=== PATIENT | male | born 1955 | race American Indian/Alaskan Native ===

== ENCOUNTER 2019-12-18 13:01 | Inpatient (IN) | payer MEDICARE ==
--- NOTE | 2019-12-18 14:19 | Emergency Department Report ---
ED Neuro Deficit HPI - General Chief Complaint: Weakness Stated Complaint: SOB/LEGGS SWOLLEN Source: patient Mode of arrival: Wheelchair Limitations: No Limitations - History of Present Illness Initial Comments: This is a 64-year-old man who states he has been homeless for the last 3 months. He states he had a "rough night". He slept on concrete. When he awoke he was unable to extend his left hand. He also complains of shortness of breath which is more acute today. He states he has been coughing yellow sputum to white foam for the last few months. He denies hemoptysis. He states he has not been recently hospitalized. He has an extensive medical history to include p acemaker/cardiomyopathy/CHF. -: days(s), week(s), month(s) Location: left arm Presenting Symptoms: Present: Weak/Paralyzed One Side History of same: No Place: home Severity: severe Quality: weak Improves With: none Worsens With: none On Anticoagulants: No Context: other (Awoke with wrist drop) Associated Symptoms: denies other symptoms Treatments Prior to Arrival: none - Related Data Home Medications: Previous Rx's Medication Instructions Recorded Last Taken Type Aspirin EC [Halfprin EC] 81 mg PO QDAY #30 tablet 06/13/14 Unknown Rx Metoprolol [Lopressor TAB] 12.5 mg PO BID #60 tablet 06/13/14 Unknown Rx Rosuvastatin (Nf) [Crestor] 20 mg PO QHS #30 tablet 06/13/14 Unknown Rx lisinopriL [Zestril TAB] 2.5 mg PO QDAY #30 tablet 06/13/14 Unknown Rx Allergies/Adverse Reactions: Allergies Allergy/AdvReac Type Severity Reaction Status Date / Time No Known Allergies Allergy Verified 12/18/19 13:35 ED Review of Systems ROS: Stated complaint: SOB/LEGGS SWOLLEN Other details as noted in HPI Constitutional: denies: chills, fever Eyes: denies: eye pain, eye discharge, vision change ENT: denies: ear pain, throat pain Respiratory: cough, shortness of breath. denies: wheezing Cardiovascular: denies: chest pain, palpitations Endocrine: no symptoms reported Gastrointestinal: denies: abdominal pain, nausea, diarrhea Genitourinary: denies: urgency, dysuria Musculoskeletal: denies: back pain, joint swelling, arthralgia Skin: denies: rash, lesions Neurological: denies: headache, weakness, paresthesias Psychiatric: denies: anxiety, depression Hematological/Lymphatic: denies: easy bleeding, easy bruising ED Past Medical Hx - Past Medical History Hx Hypertension: Yes Hx CVA: Yes (x4) Hx Heart Attack/AMI: Yes (x6) Hx Congestive Heart Failure: Yes Hx Diabetes: Yes Additional medical history: Coronary artery disease, ischemic/Nonischemic cardiomyopathy. - Surgical History Hx Pacemaker: Yes (AICD) Hx Internal Defibrillator: Yes - Social History Smoking Status: Current Every Day Smoker Substance Use Type: Alcohol, Cocaine, Marijuana - Medications Home Medications: Home Medications Medication Instructions Recorded Confirmed Last Taken Type Aspirin EC [Halfprin EC] 81 mg PO QDAY #30 tablet 06/13/14 Unknown Rx Metoprolol [Lopressor TAB] 12.5 mg PO BID #60 tablet 06/13/14 Unknown Rx Rosuvastatin (Nf) [Crestor] 20 mg PO QHS #30 tablet 06/13/14 Unknown Rx lisinopriL [Zestril TAB] 2.5 mg PO QDAY #30 tablet 06/13/14 Unknown Rx ED Neuro Physical Exam - General Limitations: No Limitations General appearance: alert, in no apparent distress Suspected Stroke: No - Head Head exam: Present: atraumatic, normocephalic - Eye Eye exam: Present: normal appearance. Absent: scleral icterus - ENT ENT exam: Present: mucous membranes moist - Neck Neck exam: Present: normal inspection. Absent: tenderness, meningismus - Respiratory Respiratory exam: Present: rales (Left sided rales posteriorly). Absent: respiratory distress - Cardiovascular Cardiovascular Exam: Present: regular rate, normal rhythm, tachycardia. Absent: systolic murmur, diastolic murmur, rubs, gallop - GI/Abdominal GI/Abdominal exam: Present: soft, normal bowel sounds. Absent: distended, tenderness, guarding, rebound - Rectal Rectal exam: Present: deferred - Extremities Exam Extremities exam: Present: other (Tense leg edema bilaterally no signs of compartment. Erythema bilateral legs.) - Back Exam Back exam: Present: normal inspection - Neurological Exam Neurological exam: Present: alert, oriented X3, CN II-XII intact, motor sensory deficit (Patient has a right wrist drop consistent with peripheral neuropathy) - NIHSS Assessment Interval: Baseline 1a. Level of Consciousness: alert/keenly responsive 1b. LOC Questions: answers both correctly 1c. LOC Commands: performs tasks correctly 2. Best Gaze: normal 3. Visual: no visual loss 4. Facial Palsy: normal symmetrical movement 5b. Motor Arm Right: no drift 5a. Motor Arm Left: no drift 6a. Motor Leg Left: no drift 6b. Motor Leg Right: no drift 7. Limb Ataxia: absent 8. Sensory: normal 9. Best Language: no aphasia 10. Dysarthria: normal 11. Extinction/Inattention: no abnormality Total Score: 0 Stroke Severity: No Stroke Symptoms - Psychiatric Psychiatric exam: Present: normal affect, normal mood - Skin Skin exam: Present: warm, dry, intact, normal color. Absent: rash ED Course Vital Signs 12/18/19 12/18/19 12/18/19 13:45 14:14 14:15 Temperature 98.2 F Pulse Rate 109 H 120 H Respiratory 26 H 24 Rate Blood Pressure Blood Pressure 172/109 [Left] O2 Sat by Pulse 93 49 L Oximetry 12/18/19 12/18/19 12/18/19 14:27 14:31 14:45 Temperature Pulse Rate 111 H 125 H Respiratory 22 19 14 Rate Blood Pressure 176/117 176/117 Blood Pressure [Left] O2 Sat by Pulse 97 94 93 Oximetry 12/18/19 12/18/19 12/18/19 15:01 15:15 15:31 Temperature Pulse Rate 122 H 107 H 122 H Respiratory 20 16 16 Rate Blood Pressure 176/117 176/117 176/117 Blood Pressure [Left] O2 Sat by Pulse 88 95 95 Oximetry 12/18/19 15:45 Temperature Pulse Rate 118 H Respiratory 32 H Rate Blood Pressure 176/117 Blood Pressure [Left] O2 Sat by Pulse 95 Oximetry - Reevaluation(s) Reevaluation #1: Conferred with the tele-neurologist he stated that 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 I certainly agree. The patient is not a candidate for TPA. He did not have a stroke. 12/18/19 16:04 12/18/19 17:07 Patient was found to have a left lingular infiltrate. He had a d-dimer over 900. I do not think that pulmonary embolism is at all likely. However a CT angiogram is now pending. I would say that COVID-19 is definitely suspected. PCR is pending. Patient's proBNP was quite elevated. He was given a dose of IV Lasix. He was given a azithromycin IV piggyback. Hospitalist is aware and admission is pending. - Lab Data Result diagrams: 12/18/19 15:20 12/18/19 15:20 Lab Results 12/18/19 12/18/19 12/18/19 Range/Units 14:55 14:55 15:20 WBC 6.8 (4.5-11.0) K/mm3 RBC 4.57 (3.65-5.03) M/mm3 Hgb 13.0 (11.8-15.2) gm/dl Hct 41.6 (35.5-45.6) % MCV 91 (84-94) fl MCH 29 (28-32) pg MCHC 31 L (32-34) % RDW 19.6 H (13.2-15.2) % Plt Count 176 (140-440) K/mm3 Lymph % (Auto) 17.6 (13.4-35.0) % Mobile % (Auto) 8.7 H (0.0-7.3) % Eos % (Auto) 1.9 (0.0-4.3) % Baso % (Auto) 0.5 (0.0-1.8) % Lymph # 1.2 (1.2-5.4) K/mm3 Mobile # 0.6 (0.0-0.8) K/mm3 Eos # 0.1 (0.0-0.4) K/mm3 Baso # 0.0 (0.0-0.1) K/mm3 Seg Neutrophils % 71.3 H (40.0-70.0) % Seg Neutrophils # 4.9 (1.8-7.7) K/mm3 PT (12.2-14.9) Sec. INR (0.87-1.13) APTT (24.2-36.6) Sec. D-Dimer (0-234) ng/mlDDU Sodium (137-145) mmol/L Potassium (3.6-5.0) mmol/L Chloride (98-107) mmol/L Carbon Dioxide (22-30) mmol/L Anion Gap mmol/L BUN (9-20) mg/dL Creatinine (0.8-1.5) mg/dL Estimated GFR ml/min BUN/Creatinine Ratio % Glucose (75-100) mg/dL Calcium (8.4-10.2) mg/dL Magnesium (1.7-2.3) mg/dL Ferritin (13.0-400.0) ng/mL Total Bilirubin (0.1-1.2) mg/dL Direct Bilirubin (0-0.2) mg/dL Indirect Bilirubin mg/dL AST (5-40) units/L ALT (7-56) units/L Alkaline Phosphatase (35-129) units/L Lactate Dehydrogenase (91-180) units/L Total Creatine Kinase (55-170) units/L CK-MB (CK-2) (0.0-4.0) ng/mL CK-MB (CK-2) Rel Index (0-4) Troponin T (0.00-0.029) ng/mL C-Reactive Protein (0.00-1.30) mg/dL NT-Pro-B Natriuret Pep (0-900) pg/mL Total Protein (6.3-8.2) g/dL Albumin (3.9-5) g/dL Albumin/Globulin Ratio % Urine Color Colorless (Yellow) Urine Turbidity Clear (Clear) Urine pH 6.0 (5.0-7.0) Ur Specific Aiken 1.004 (1.003-1.030) Urine Protein <15 mg/dl (Negative) mg/dL Urine Glucose (UA) Neg (Negative) mg/dL Urine Ketones Neg (Negative) mg/dL Urine Blood Sm (Negative) Urine Nitrite Neg (Negative) Urine Bilirubin Neg (Negative) Urine Urobilinogen < 2.0 (<2.0) mg/dL Ur Leukocyte Esterase Neg (Negative) Urine WBC (Auto) < 1.0 (0.0-6.0) /HPF Urine RBC (Auto) 2.0 (0.0-6.0) /HPF Urine Opiates Screen Presumptive negative Urine Methadone Screen Presumptive negative Ur Barbiturates Screen Presumptive negative Ur Phencyclidine Scrn Presumptive negative Ur Amphetamines Screen Presumptive negative U Benzodiazepines Scrn Presumptive negative Urine Cocaine Screen Presumptive positive U Marijuana (THC) Screen Presumptive negative Drugs of Abuse Note Disclamer Plasma/Serum Alcohol (0-0.07) % 12/18/19 12/18/19 12/18/19 Range/Units 15:20 15:20 15:20 WBC (4.5-11.0) K/mm3 RBC (3.65-5.03) M/mm3 Hgb (11.8-15.2) gm/dl Hct (35.5-45.6) % MCV (84-94) fl MCH (28-32) pg MCHC (32-34) % RDW (13.2-15.2) % Plt Count (140-440) K/mm3 Lymph % (Auto) (13.4-35.0) % Mobile % (Auto) (0.0-7.3) % Eos % (Auto) (0.0-4.3) % Baso % (Auto) (0.0-1.8) % Lymph # (1.2-5.4) K/mm3 Mobile # (0.0-0.8) K/mm3 Eos # (0.0-0.4) K/mm3 Baso # (0.0-0.1) K/mm3 Seg Neutrophils % (40.0-70.0) % Seg Neutrophils # (1.8-7.7) K/mm3 PT 13.5 (12.2-14.9) Sec. INR 1.02 (0.87-1.13) APTT 25.9 (24.2-36.6) Sec. D-Dimer 982.33 H (0-234) ng/mlDDU Sodium 138 (137-145) mmol/L Potassium 4.2 (3.6-5.0) mmol/L Chloride 100.1 (98-107) mmol/L Carbon Dioxide 27 (22-30) mmol/L Anion Gap 15 mmol/L BUN 7 L (9-20) mg/dL Creatinine 0.8 (0.8-1.5) mg/dL Estimated GFR > 60 ml/min BUN/Creatinine Ratio 9 % Glucose 91 (75-100) mg/dL Calcium 8.9 (8.4-10.2) mg/dL Magnesium 1.50 L (1.7-2.3) mg/dL Ferritin (13.0-400.0) ng/mL Total Bilirubin 0.80 (0.1-1.2) mg/dL Direct Bilirubin 0.4 H (0-0.2) mg/dL Indirect Bilirubin 0.4 mg/dL AST 39 (5-40) units/L ALT 23 (7-56) units/L Alkaline Phosphatase 134 H (35-129) units/L Lactate Dehydrogenase (91-180) units/L Total Creatine Kinase 183 H (55-170) units/L CK-MB (CK-2) 8.6 H (0.0-4.0) ng/mL CK-MB (CK-2) Rel Index 4.6 H (0-4) Troponin T 0.014 (0.00-0.029) ng/mL C-Reactive Protein (0.00-1.30) mg/dL NT-Pro-B Natriuret Pep 26037 H (0-900) pg/mL Total Protein 7.8 (6.3-8.2) g/dL Albumin 3.6 L (3.9-5) g/dL Albumin/Globulin Ratio 0.9 % Urine Color (Yellow) Urine Turbidity (Clear) Urine pH (5.0-7.0) Ur Specific Aiken (1.003-1.030) Urine Protein (Negative) mg/dL Urine Glucose (UA) (Negative) mg/dL Urine Ketones (Negative) mg/dL Urine Blood (Negative) Urine Nitrite (Negative) Urine Bilirubin (Negative) Urine Urobilinogen (<2.0) mg/dL Ur Leukocyte Esterase (Negative) Urine WBC (Auto) (0.0-6.0) /HPF Urine RBC (Auto) (0.0-6.0) /HPF Urine Opiates Screen Urine Methadone Screen Ur Barbiturates Screen Ur Phencyclidine Scrn Ur Amphetamines Screen U Benzodiazepines Scrn Urine Cocaine Screen U Marijuana (THC) Screen Drugs of Abuse Note Plasma/Serum Alcohol < 0.01 (0-0.07) % 12/18/19 12/18/19 Range/Units 15:20 15:20 WBC (4.5-11.0) K/mm3 RBC (3.65-5.03) M/mm3 Hgb (11.8-15.2) gm/dl Hct (35.5-45.6) % MCV (84-94) fl MCH (28-32) pg MCHC (32-34) % RDW (13.2-15.2) % Plt Count (140-440) K/mm3 Lymph % (Auto) (13.4-35.0) % Mobile % (Auto) (0.0-7.3) % Eos % (Auto) (0.0-4.3) % Baso % (Auto) (0.0-1.8) % Lymph # (1.2-5.4) K/mm3 Mobile # (0.0-0.8) K/mm3 Eos # (0.0-0.4) K/mm3 Baso # (0.0-0.1) K/mm3 Seg Neutrophils % (40.0-70.0) % Seg Neutrophils # (1.8-7.7) K/mm3 PT (12.2-14.9) Sec. INR (0.87-1.13) APTT (24.2-36.6) Sec. D-Dimer (0-234) ng/mlDDU Sodium (137-145) mmol/L Potassium (3.6-5.0) mmol/L Chloride (98-107) mmol/L Carbon Dioxide (22-30) mmol/L Anion Gap mmol/L BUN (9-20) mg/dL Creatinine (0.8-1.5) mg/dL Estimated GFR ml/min BUN/Creatinine Ratio % Glucose 90 (75-100) mg/dL Calcium (8.4-10.2) mg/dL Magnesium (1.7-2.3) mg/dL Ferritin 19.7 (13.0-400.0) ng/mL Total Bilirubin (0.1-1.2) mg/dL Direct Bilirubin (0-0.2) mg/dL Indirect Bilirubin mg/dL AST (5-40) units/L ALT (7-56) units/L Alkaline Phosphatase (35-129) units/L Lactate Dehydrogenase 410 H (91-180) units/L Total Creatine Kinase (55-170) units/L CK-MB (CK-2) (0.0-4.0) ng/mL CK-MB (CK-2) Rel Index (0-4) Troponin T (0.00-0.029) ng/mL C-Reactive Protein 1.50 H (0.00-1.30) mg/dL NT-Pro-B Natriuret Pep (0-900) pg/mL Total Protein (6.3-8.2) g/dL Albumin (3.9-5) g/dL Albumin/Globulin Ratio % Urine Color (Yellow) Urine Turbidity (Clear) Urine pH (5.0-7.0) Ur Specific Aiken (1.003-1.030) Urine Protein (Negative) mg/dL Urine Glucose (UA) (Negative) mg/dL Urine Ketones (Negative) mg/dL Urine Blood (Negative) Urine Nitrite (Negative) Urine Bilirubin (Negative) Urine Urobilinogen (<2.0) mg/dL Ur Leukocyte Esterase (Negative) Urine WBC (Auto) (0.0-6.0) /HPF Urine RBC (Auto) (0.0-6.0) /HPF Urine Opiates Screen Urine Methadone Screen Ur Barbiturates Screen Ur Phencyclidine Scrn Ur Amphetamines Screen U Benzodiazepines Scrn Urine Cocaine Screen U Marijuana (THC) Screen Drugs of Abuse Note Plasma/Serum Alcohol (0-0.07) % Laboratory Results - last 24 hr 12/18/19 12/18/19 14:55 14:55 Urine Color Colorless Urine Turbidity Clear Urine pH 6.0 Ur Specific Aiken 1.004 Urine Protein <15 mg/dl Urine Glucose (UA) Neg Urine Ketones Neg Urine Blood Sm Urine Nitrite Neg Urine Bilirubin Neg Urine Urobilinogen < 2.0 Ur Leukocyte Esterase Neg Urine WBC (Auto) < 1.0 Urine RBC (Auto) 2.0 Urine Opiates Screen Presumptive negative Urine Methadone Screen Presumptive negative Ur Barbiturates Screen Presumptive negative Ur Phencyclidine Scrn Presumptive negative Ur Amphetamines Screen Presumptive negative U Benzodiazepines Scrn Presumptive negative Urine Cocaine Screen Presumptive positive U Marijuana (THC) Screen Presumptive negative Drugs of Abuse Note Disclamer Laboratory Results - last 24 hr 12/18/19 12/18/19 12/18/19 14:55 14:55 15:20 WBC 6.8 RBC 4.57 Hgb 13.0 Hct 41.6 MCV 91 MCH 29 MCHC 31 L RDW 19.6 H Plt Count 176 Lymph % (Auto) 17.6 Mobile % (Auto) 8.7 H Eos % (Auto) 1.9 Baso % (Auto) 0.5 Lymph # 1.2 Mobile # 0.6 Eos # 0.1 Baso # 0.0 Seg Neutrophils % 71.3 H Seg Neutrophils # 4.9 PT INR APTT D-Dimer Sodium Potassium Chloride Carbon Dioxide Anion Gap BUN Creatinine Estimated GFR BUN/Creatinine Ratio Glucose Calcium Magnesium Ferritin Total Bilirubin Direct Bilirubin Indirect Bilirubin AST ALT Alkaline Phosphatase Lactate Dehydrogenase Total Creatine Kinase CK-MB (CK-2) CK-MB (CK-2) Rel Index Troponin T C-Reactive Protein NT-Pro-B Natriuret Pep Total Protein Albumin Albumin/Globulin Ratio Urine Color Colorless Urine Turbidity Clear Urine pH 6.0 Ur Specific Aiken 1.004 Urine Protein <15 mg/dl Urine Glucose (UA) Neg Urine Ketones Neg Urine Blood Sm Urine Nitrite Neg Urine Bilirubin Neg Urine Urobilinogen < 2.0 Ur Leukocyte Esterase Neg Urine WBC (Auto) < 1.0 Urine RBC (Auto) 2.0 Urine Opiates Screen Presumptive negative Urine Methadone Screen Presumptive negative Ur Barbiturates Screen Presumptive negative Ur Phencyclidine Scrn Presumptive negative Ur Amphetamines Screen Presumptive negative U Benzodiazepines Scrn Presumptive negative Urine Cocaine Screen Presumptive positive U Marijuana (THC) Screen Presumptive negative Drugs of Abuse Note Disclamer Plasma/Serum Alcohol 12/18/19 12/18/19 12/18/19 15:20 15:20 15:20 WBC RBC Hgb Hct MCV MCH MCHC RDW Plt Count Lymph % (Auto) Mobile % (Auto) Eos % (Auto) Baso % (Auto) Lymph # Mobile # Eos # Baso # Seg Neutrophils % Seg Neutrophils # PT 13.5 INR 1.02 APTT 25.9 D-Dimer 982.33 H Sodium 138 Potassium 4.2 Chloride 100.1 Carbon Dioxide 27 Anion Gap 15 BUN 7 L Creatinine 0.8 Estimated GFR > 60 BUN/Creatinine Ratio 9 Glucose 91 Calcium 8.9 Magnesium 1.50 L Ferritin Total Bilirubin 0.80 Direct Bilirubin 0.4 H Indirect Bilirubin 0.4 AST 39 ALT 23 Alkaline Phosphatase 134 H Lactate Dehydrogenase Total Creatine Kinase 183 H CK-MB (CK-2) 8.6 H CK-MB (CK-2) Rel Index 4.6 H Troponin T 0.014 C-Reactive Protein NT-Pro-B Natriuret Pep 49994 H Total Protein 7.8 Albumin 3.6 L Albumin/Globulin Ratio 0.9 Urine Color Urine Turbidity Urine pH Ur Specific Aiken Urine Protein Urine Glucose (UA) Urine Ketones Urine Blood Urine Nitrite Urine Bilirubin Urine Urobilinogen Ur Leukocyte Esterase Urine WBC (Auto) Urine RBC (Auto) Urine Opiates Screen Urine Methadone Screen Ur Barbiturates Screen Ur Phencyclidine Scrn Ur Amphetamines Screen U Benzodiazepines Scrn Urine Cocaine Screen U Marijuana (THC) Screen Drugs of Abuse Note Plasma/Serum Alcohol < 0.01 12/18/19 12/18/19 15:20 15:20 WBC RBC Hgb Hct MCV MCH MCHC RDW Plt Count Lymph % (Auto) Mobile % (Auto) Eos % (Auto) Baso % (Auto) Lymph # Mobile # Eos # Baso # Seg Neutrophils % Seg Neutrophils # PT INR APTT D-Dimer Sodium Potassium Chloride Carbon Dioxide Anion Gap BUN Creatinine Estimated GFR BUN/Creatinine Ratio Glucose 90 Calcium Magnesium Ferritin 19.7 Total Bilirubin Direct Bilirubin Indirect Bilirubin AST ALT Alkaline Phosphatase Lactate Dehydrogenase 410 H Total Creatine Kinase CK-MB (CK-2) CK-MB (CK-2) Rel Index Troponin T C-Reactive Protein 1.50 H NT-Pro-B Natriuret Pep Total Protein Albumin Albumin/Globulin Ratio Urine Color Urine Turbidity Urine pH Ur Specific Aiken Urine Protein Urine Glucose (UA) Urine Ketones Urine Blood Urine Nitrite Urine Bilirubin Urine Urobilinogen Ur Leukocyte Esterase Urine WBC (Auto) Urine RBC (Auto) Urine Opiates Screen Urine Methadone Screen Ur Barbiturates Screen Ur Phencyclidine Scrn Ur Amphetamines Screen U Benzodiazepines Scrn Urine Cocaine Screen U Marijuana (THC) Screen Drugs of Abuse Note Plasma/Serum Alcohol - EKG Data -: EKG Interpreted by Sc EKG shows normal: sinus rhythm Rate: tachycardia Interpretation: LVH (Four-chamber enlargement is likely occasional PVCs associated repolarization abnormalities) - Radiology Data Radiology results: report reviewed, image reviewed (CT the head was negative. Chest x-ray showed a left lingular infiltrate.) Critical care attestation.: If time is entered above; I have spent that time in minutes in the direct care of this critically ill patient, excluding procedure time. ED Disposition Clinical Impression: Right radial nerve palsy, Person under investigation for COVID-19, Cocaine abuse, Hypomagnesemia, Accelerated hypertension Pneumonia Qualifiers: Pneumonia type: due to unspecified organism Laterality: left Lung location: lower lobe of lung Qualified Code(s): J18.9 - Pneumonia, unspecified organism Cardiomyopathy Qualifiers: Cardiomyopathy type: unspecified Qualified Code(s): I42.9 - Cardiomyopathy, unspecified Disposition: OP ADMIT IP TO THIS HOSP Is pt being admited?: Yes Does the pt Need Aspirin: Yes Condition: Stable Instructions: Bacterial Pneumonia (ED), Hypertension (ED) Time of Disposition: 17:11
--- NOTE | 2019-12-18 14:26 | Emergency Department Report ---
ED Neuro Deficit HPI - General Chief Complaint: Weakness Stated Complaint: SOB/LEGGS SWOLLEN Source: patient Mode of arrival: Wheelchair Limitations: No Limitations - History of Present Illness Initial Comments: [facility] Date of Service: 12/18/2019 14:02:26 Impression: Rule Out Acute Ischemic Stroke Comments/Sign-Out: L wrist drop - consistent with radial nerve injury, suspect from compression over night. Recommend splinting the wrist. Stroke less likely but cannot be ruled out. Recommend admission for MRI. Mechanism of Stroke: Possible Thromboembolic Possible Cardioembolic Small Vessel Disease Metrics: Last Known Well: 12/18/2019 00:00:00 [facility] Notification Time: 12/18/2019 14:01:02 Arrival Time: 12/18/2019 13:01:00 Stamp Time: 12/18/2019 14:02:26 Time First Login Attempt: 12/18/2019 14:11:00 Video Start Time: 12/18/2019 14:11:00 Symptoms: L hand numbness NIHSS Start Assessment Time: 12/18/2019 14:15:19 Patient is not a candidate for tPA. Patient was not deemed candidate for tPA thrombolytics because of Last Well Known Above 4.5 Hours. Video End Time: 12/18/2019 14:21:08 CT head showed no acute hemorrhage or acute core infarct. CT head was reviewed. Clinical Presentation is not Suggestive of Large Vessel Occlusive Disease ED Physician notified of diagnostic impression and management plan on 12/18/2019 14:21:09 Our recommendations are outlined below. Recommendations: Activate Stroke Protocol Admission/Order Set Stroke/Telemetry Floor Neuro Checks Bedside Swallow Eval DVT Prophylaxis IV Fluids, Normal Saline Head of Bed 30 Degrees Euglycemia and Avoid Hyperthermia (PRN Acetaminophen) start ASA if CT head is neg for hemorrhage Routine Consultation with Inhouse Neurology for Follow up Care Sign Out: Discussed with Emergency Department Provider History of Present Illness: Patient is a 64 year old Male. Patient was brought by private transportation with symptoms of L hand numbness 64 yo man with acute onset L wrist drop noted when he woke up this am. LSN at approx 0000 last night. He admits to cocaine use last night at approx 2200. He also has B LE numbness and swelling. He endorses taking blood thinners, but cannot recall the name. Examination: 1A: Level of Consciousness - Alert; keenly responsive + 0 1B: Ask Month and Age - Both Questions Right + 0 1C: Blink Eyes & Squeeze Hands - Performs Both Tasks + 0 2: Test Horizontal Extraocular Movements - Normal + 0 3: Test Visual Riggins - No Visual Loss + 0 4: Test Facial Palsy (Use Grimace if Obtunded) - Normal symmetry + 0 5A: Test Left Arm Motor Drift - No Drift for 10 Seconds + 0 5B: Test Right Arm Motor Drift - No Drift for 10 Seconds + 0 6A: Test Left Leg Motor Drift - No Drift for 5 Seconds + 0 6B: Test Right Leg Motor Drift - No Drift for 5 Seconds + 0 7: Test Limb Ataxia (FNF/Heel-Moreno) - No Ataxia + 0 8: Test Sensation - Normal; No sensory loss + 0 9: Test Language/Aphasia - Normal; No aphasia + 0 10: Test Dysarthria - Normal + 0 11: Test Extinction/Inattention - No abnormality + 0 NIHSS Score: 0 Due to the immediate potential for life-threatening deterioration due to underlying acute neurologic illness, I spent 35 minutes providing critical care. This time includes time for face to face visit via telemedicine, review of medical records, imaging studies and discussion of findings with providers, the patient and/or family. Dr Buzz [facility] Case [id number] - Related Data Home Medications: Previous Rx's Medication Instructions Recorded Last Taken Type Aspirin EC [Halfprin EC] 81 mg PO QDAY #30 tablet 06/13/14 Unknown Rx Metoprolol [Lopressor TAB] 12.5 mg PO BID #60 tablet 06/13/14 Unknown Rx Rosuvastatin (Nf) [Crestor] 20 mg PO QHS #30 tablet 06/13/14 Unknown Rx lisinopriL [Zestril TAB] 2.5 mg PO QDAY #30 tablet 06/13/14 Unknown Rx Allergies/Adverse Reactions: Allergies Allergy/AdvReac Type Severity Reaction Status Date / Time No Known Allergies Allergy Verified 12/18/19 13:35 ED Review of Systems ROS: Stated complaint: SOB/LEGGS SWOLLEN Other details as noted in HPI ED Past Medical Hx - Past Medical History Hx Hypertension: Yes Hx CVA: Yes (x4) Hx Heart Attack/AMI: Yes (x6) Hx Congestive Heart Failure: Yes Hx Diabetes: Yes Additional medical history: Coronary artery disease, ischemic/Nonischemic cardiomyopathy. - Surgical History Hx Pacemaker: Yes (AICD) Hx Internal Defibrillator: Yes - Social History Smoking Status: Current Every Day Smoker Substance Use Type: Alcohol, Cocaine, Marijuana - Medications Home Medications: Home Medications Medication Instructions Recorded Confirmed Last Taken Type Aspirin EC [Halfprin EC] 81 mg PO QDAY #30 tablet 06/13/14 Unknown Rx Metoprolol [Lopressor TAB] 12.5 mg PO BID #60 tablet 06/13/14 Unknown Rx Rosuvastatin (Nf) [Crestor] 20 mg PO QHS #30 tablet 06/13/14 Unknown Rx lisinopriL [Zestril TAB] 2.5 mg PO QDAY #30 tablet 06/13/14 Unknown Rx ED Neuro Physical Exam - General Limitations: No Limitations Suspected Stroke: Yes - NIHSS Assessment Interval: Baseline 1a. Level of Consciousness: alert/keenly responsive 1b. LOC Questions: answers both correctly 1c. LOC Commands: performs tasks correctly 2. Best Gaze: normal 3. Visual: no visual loss 4. Facial Palsy: normal symmetrical movement 5b. Motor Arm Right: no drift 5a. Motor Arm Left: no drift 6a. Motor Leg Left: no drift 6b. Motor Leg Right: no drift 7. Limb Ataxia: absent 8. Sensory: normal 9. Best Language: no aphasia 10. Dysarthria: normal 11. Extinction/Inattention: no abnormality Total Score: 0 Stroke Severity: No Stroke Symptoms ED Course Vital Signs 12/18/19 13:45 Temperature 98.2 F Pulse Rate 109 H Respiratory 26 H Rate Blood Pressure 172/109 [Left] O2 Sat by Pulse 93 Oximetry Critical care attestation.: If time is entered above; I have spent that time in minutes in the direct care of this critically ill patient, excluding procedure time. ED Disposition Clinical Impression: Weakness of left hand Disposition: OP ADMIT IP TO THIS HOSP Is pt being admited?: Yes Condition: Stable
--- NOTE | 2019-12-18 14:32 | Cat Scan Report ---
CT BRAIN: 12/18/2019 INDICATION / CLINICAL INFORMATION: Left-sided weakness. COMPARISON: 06/12/2014 FINDINGS: BRAIN/INTRACRANIAL STRUCTURES: Unenhanced CT images of the brain demonstrate no evidence of acute int racranial abnormality. Ventricles and sulci are normal in size and shape for a patient of this age. There is no evidence of acute ischemic injury, hemorrhage, or mass. There are no abnormal extra-axial fluid collections. EXTRACRANIAL STRUCTURES: Unremarkable. IMPRESSION: Negative unenhanced CT of the brain for age. No change when compared to a prior exam from 06/12/2014. These findings were discussed with Dr. Garcia in the emergency department at [address] scans at this location are performed using dose reduction to ALARA by means of automated expos ure control. Signer Name: Devendra Simpson MD Signed: 12/18/2019 2:27 PM Workstation Name: [id number]
[2019-12-18 15:04] LABS: Bilirubin,Urine NEG (Negative); Blood,Urine SM (Negative); Color,Urine Colorless (Yellow); Protein,Urine <15 mg/dL mg/dL (Negative); Urobilinogen,Urine < 2.0 mg/dL (<2.0); WBC,Urine < 1.0 /HPF (0.0-6.0)
[2019-12-18 15:12] LABS: Amphetamine Screen,Urine PRESUMPTIVE NEGATIVE; Benzodiazepines Screen,Urine PRESUMPTIVE NEGATIVE; Cannabinoid Screen,Urine PRESUMPTIVE NEGATIVE; Methadone Screen,Urine PRESUMPTIVE NEGATIVE; Opiate Screen,Urine PRESUMPTIVE NEGATIVE
[2019-12-18 15:24] LABS: Cocaine Screen,Urine PRESUMPTIVE POSITIVE
[2019-12-18] MEDS ORDERED: AZITHROMYCIN 500 MG in SODIUM CHLORIDE 0.9% 250ML 250 ML IV ONE (15:48)
--- NOTE | 2019-12-18 15:51 | XRay Report ---
CHEST 1 VIEW INDICATION / CLINICAL INFORMATION: SHORTNESS OF BREATH. COMPARISON: 11/07/2011 FINDINGS: SUPPORT DEVICES: ICD on the left. HEART / MEDIASTINUM: No significant abnormality. LUNGS / PLEURA: Hazy opacity is seen in the area of the lingular segment of the left upper lobe. Right lung appears clear. No pneumothorax. ADDITIONAL FINDINGS: No significant additional findings. IMPRESSION: 1. Acute opacity in the lingular segment of the left upper lobe. Signer Name: Mat Lozada MD Signed: 12/18/2019 3:46 PM Workstation Name: [id number]
[2019-12-18] MEDS ORDERED: ACETAMINOPHEN 325 MG TAB ONE (15:52)
[2019-12-18 16:12] LABS: Creatine Kinase MB 8.6 ng/mL (0.0-4.0)
[2019-12-18 16:13] LABS: Basophils % (Auto) 0.5 % (0.0-1.8); Eosinophils # (Auto) 0.1 K/mm3 (0.0-0.4); Eosinophils % (Auto) 1.9 % (0.0-4.3); Hematocrit 41.6 % (35.5-45.6); Lymphocytes # (Auto) 1.2 K/mm3 (1.2-5.4); Lymphocytes % (Auto) 17.6 % (13.4-35.0); Mean Corpuscular HGB Conc 31 % (32-34); Mean Corpuscular Volume 91 fl (84-94); Monocytes # (Auto) 0.6 K/mm3 (0.0-0.8); Monocytes % (Auto) 8.7 % (0.0-7.3); Platelet Count 176 K/mm3 (140-440); Red Blood Count 4.57 M/mm3 (3.65-5.03); Red Cell Distribution Width 19.6 % (13.2-15.2)
[2019-12-18 16:14] LABS: Alanine Aminotransferase 23 units/L (7-56); Albumin 3.6 g/dL (3.9-5); BUN/Creatinine Ratio 9; Blood Urea Nitrogen 7 mg/dL (9-20); Calcium 8.9 mg/dL (8.4-10.2); Hemolysis Index 39
[2019-12-18 16:16] LABS: C-Reactive Protein 1.5 mg/dL (0.00-1.30)
[2019-12-18 16:17] LABS: INR 1.02 (0.87-1.13)
[2019-12-18 16:18] LABS: Partial Thromboplastin Time 25.9 Sec. (24.2-36.6)
[2019-12-18 16:28] LABS: Bilirubin,Direct 0.4 mg/dL (0-0.2)
[2019-12-18] MEDS ORDERED: FUROSEMIDE 40 MG/4 ML INJ IV ONE (16:56)
[2019-12-18] MEDS ORDERED: LORazepam 2 MG/ML VIAL IV ONE (17:04)
[2019-12-18] MEDS ORDERED: ASPIRIN 325 MG TAB PO ONE (17:11)
--- NOTE | 2019-12-18 18:02 | History and Physical Report ---
History of Present Illness Chief complaint: I felt weak History of present illness: 64 YO Male with HTN, CVA, PR, CHF S/P AICD Placement, DM, Nicotine Dependence, Polysubstance Abuse, Homelessness presents to ED for evaluation. Patient states that he was in his usual state of health around bedtime at 2300 hrs. Patient states that he awoke from sleep and experienced weakness in his left hand as well as slurred speech. Patient also reports shortness of breath, productive cough with yellow sputum, and suspected contact with coronavirus. Patient transported to [facility] via private vehicle for further care and evaluation. Patient seen and evaluated in the emergency department. Lab and imaging studies reviewed. Patient found to have neurologic deficit and clinical symptoms consistent with cerebrovascular accident. Tele-neurology consulted. Patient is outside the therapeutic window for TPA but is initiated on CVA protocol. Chest x-ray revealed left upper lobe infiltrate consistent with pneumonia. Patient initiated on pneumonia protocol. Patient found to have risk factors for COVID- 19 and initiated on COVID-19 protocol in the emergency department. Patient admitted to medical floor due to increased risk of cardiopulmonary decompensation. Pulmonary team consulted in ED. Infectious disease team cons ulted in ED. Neurology team consulted in ED. prior admission on 06/13/2014 reviewed. All medication listed at time of admission has been reconciled. Advanced care planning conducted in ED. Case management consulted in ED for assistance with discharge planning and assisted living facility placement. Past History Past Medical History: acute PR, heart failure, hypertension, stroke, other (See HPI) Past Surgical History: Other (AICD/pacemaker placement) Social history: single, smoking, other (Polysubstance abuse, homelessness) Family history: hypertension Medications and Allergies Allergies Allergy/AdvReac Type Severity Reaction Status Date / Time No Known Allergies Allergy Verified 12/18/19 13:35 Home Medications Medication Instructions Recorded Confirmed Last Taken Type Aspirin EC [Halfprin EC] 81 mg PO QDAY #30 tablet 06/13/14 Unknown Rx Metoprolol [Lopressor TAB] 12.5 mg PO BID #60 tablet 06/13/14 Unknown Rx Rosuvastatin (Nf) [Crestor] 20 mg PO QHS #30 tablet 06/13/14 Unknown Rx lisinopriL [Zestril TAB] 2.5 mg PO QDAY #30 tablet 06/13/14 Unknown Rx Active Meds: Active Medications Magnesium Oxide (Mag-Ox) 400 mg PO QDAY [facility] Review of Systems Constitutional: malaise, no weight loss, no fever, no chills Ears, nose, mouth and throat: no ear pain, no ear discharge, no tinnitis, no nose pain, no nasal congestion Cardiovascular: no chest pain, no orthopnea, no edema, no syncope Respiratory: cough with sputum, shortness of breath, no cough, no hemoptysis Gastrointestinal: no nausea, no vomiting, no diarrhea, no constipation Genitourinary Male: no hematuria, no flank pain, no discharge, no urinary frequency Rectal: no pain, no incontinence, no bleeding Integumentary: no rash, no pruritis, no redness, no sores Neurological: no paralysis, no weakness, no numbness, no seizures, no syncope Psychiatric: no anxiety, no change in sleep habits, no insomnia, no change in libido Endocrine: no cold intolerance, no polydipsia, no nocturia Hematologic/Lymphatic: no easy bruising, no easy bleeding, no lymphadenopathy Allergic/Immunologic: no urticaria, no wheezing, no persistent infections, no a naphylaxis Exam - Constitutional Vitals: Temp Pulse Resp BP Pulse Ox 98.2 F 118 H 32 H 176/117 95 12/18/19 13:45 12/18/19 15:45 12/18/19 15:45 12/18/19 15:45 12/18/19 15:45 General appearance: Present: mild distress - EENT Eyes: Present: PERRL ENT: hearing intact, clear oral mucosa - Neck Neck: Present: supple, normal ROM - Respiratory Respiratory effort: normal Respiratory: bilateral: diminished, rhonchi - Cardiovascular Heart Sounds: Present: S1 & S2. Absent: rub, click - Extremities Extremities: pulses symmetrical Extremity abnormal: edema Peripheral Pulses: within normal limits - Abdominal General gastrointestinal: Present: soft, non-tender, non-distended, normal bowel sounds Male genitourinary: Present: normal - Integumentary Integumentary: Present: clear, warm, dry - Musculoskeletal Musculoskeletal: left sided weakness - Psychiatric Psychiatric: appropriate mood/affect, intact judgment & insight - Neurologic Neurologic: CNII-XII intact, moves all extremities HEART Score - HEART Score Troponin: Troponin T 0.014 ng/mL (0.00-0.029) 12/18/19 15:20 Results - Labs CBC & Chem 7: 12/18/19 15:20 12/18/19 15:20 Labs: Abnormal lab results 12/18/19 12/18/19 12/18/19 Range/Units 15:20 15:20 15:20 MCHC 31 L (32-34) % RDW 19.6 H (13.2-15.2) % Rice % (Auto) 8.7 H (0.0-7.3) % Seg Neutrophils % 71.3 H (40.0-70.0) % D-Dimer 982.33 H (0-234) ng/mlDDU BUN 7 L (9-20) mg/dL Magnesium 1.50 L (1.7-2.3) mg/dL Direct Bilirubin 0.4 H (0-0.2) mg/dL Alkaline Phosphatase 134 H (35-129) units/L Lactate Dehydrogenase (91-180) units/L Total Creatine Kinase 183 H (55-170) units/L CK-MB (CK-2) 8.6 H (0.0-4.0) ng/mL CK-MB (CK-2) Rel Index 4.6 H (0-4) C-Reactive Protein (0.00-1.30) mg/dL NT-Pro-B Natriuret Pep 27261 H (0-900) pg/mL Albumin 3.6 L (3.9-5) g/dL 12/18/19 Range/Units 15:20 MCHC (32-34) % RDW (13.2-15.2) % Rice % (Auto) (0.0-7.3) % Seg Neutrophils % (40.0-70.0) % D-Dimer (0-234) ng/mlDDU BUN (9-20) mg/dL Magnesium (1.7-2.3) mg/dL Direct Bilirubin (0-0.2) mg/dL Alkaline Phosphatase (35-129) units/L Lactate Dehydrogenase 410 H (91-180) units/L Total Creatine Kinase (55-170) units/L CK-MB (CK-2) (0.0-4.0) ng/mL CK-MB (CK-2) Rel Index (0-4) C-Reactive Protein 1.50 H (0.00-1.30) mg/dL NT-Pro-B Natriuret Pep (0-900) pg/mL Albumin (3.9-5) g/dL Assessment and Plan - Patient Problems (1) CVA (cerebral vascular accident) Current Visit: Yes Status: Acute Qualifiers: Precerebral and cerebral artery: middle cerebral artery Laterality of affected vessel: right Plan to address problem: CVA protocol: CT head, neuro check, seizure precaution, fall precaution, antiplatelet therapy, tele-neurology consulted, carotid Doppler, echocardiogram, physical therapy, Occupational Therapy, speech therapy, antiplatelet therapy, lipid panel, statin therapy, neurology consulted. (2) Pneumonia Current Visit: Yes Status: Acute Qualifiers: Laterality: left Lung location: upper lobe of lung Plan to address problem: Pneumonia protocol: IV antibiotic therapy, submental oxygen, pulse oximetry, chest x-ray, supportive care. (3) Suspected 2019 novel coronavirus infection Current Visit: Yes Status: Acute Plan to address problem: COVID-19 protocol initiated in the emergency department. The service consulted, pulmonology service consulted, COVID-19 PCR ordered in the emergency department, prolonged ventilation, submental oxygen, supportive care. (4) CHF (congestive heart failure) Current Visit: Yes Status: Acute Qualifiers: Heart failure type: systolic Heart failure chronicity: acute on chronic Qualified Code(s): I50.23 - Acute on chronic systolic (congestive) heart failure Plan to address problem: Strict I/O, monitor urine output every shift, daily weight, supplemental oxygen, afterload reduction, blood pressure control, monitor fluid balance, BNP, (5) Hypertension Current Visit: Yes Status: Acute Qualifiers: Hypertension type: essential hypertension Qualified Code(s): I10 - Essential (primary) hypertension Plan to address problem: Monitor blood pressure every shift, continue medical management. (6) Diabetes Current Visit: Yes Status: Acute Plan to address problem: Consistent carbohydrate diet, sliding scale insulin therapy, Accu-Chek, hypoglycemia protocol (7) DVT prophylaxis Current Visit: No Status: Acute Plan to address problem: SCD to bilateral lower extremities while in bed, patient is ambulatory (8) Advance care planning Current Visit: Yes Status: Acute Plan to address problem: Disease education conducted, patient is full code, patient acknowledges understanding and agreement with care plan, +30 minutes.
[2019-12-18] MEDS ORDERED: MAGNESIUM HYDROXIDE (MOM) ORAL LIQD UDC PO PRN (18:03)
[2019-12-18] MEDS ORDERED: PROMETHAZINE 25 MG RECT SUPP PR PRN (18:03)
[2019-12-18] MEDS ORDERED: METOCLOPRAMIDE 10 MG TAB PO PRN (18:03)
[2019-12-18] MEDS ORDERED: ONDANSETRON 4 MG/2 ML INJ IV PRN (18:03)
--- NOTE | 2019-12-18 18:36 | Cat Scan Report ---
CT angio chest INDICATION / CLINICAL INFORMATION: Dyspnea, elevated dimer. TECHNIQUE: Precontrast bolus timing images were obtained followed by postcontrast axial and reformatted images. 3-plane MIP reconstructions were performed at an independent workstation by the technologist. All CT scans at this location are performed using CT dose reduction for ALARA by means of automated exposure control. COMPARISON: None available. FINDINGS: Enhancement of the pulmonary arteries is normal. No evidence of pulmonary embolus. No mediastinal adenopathy. There is a 9 mm noncalcified pulmonary nodule in the left lower lobe (series #2, image 85). Patchy density is also identified in the lingular segment of the left upper lobe. Degenerative changes are seen in the thoracic spine. Limited upper abdominal images are nonremarkable. IMPRESSION: 1. No evidence of pulmonary embolus. 2. Opacity in the lingular segment could represent acute pneumonia. 3. 9 mm left lower lobe pulmonary nodule. INCIDENTAL PULMONARY NODULE RECOMMENDATION RECOMMENDATION: 6 month follow-up CT Note These recommendations do not apply to lung cancer screening, patients with immunosuppression, o r patients with known primary cancer. Note Newly detected indeterminate nodule in persons 35 years of age or older. Persons under the age of 35 should not receive follow-up unless there is a known primary cancer. Note A Perifissural Nodule is a fissure-attached/subpleural, homogeneous, solid nodule that had smoo th margins and an oval, lentiform, or triangular shape. They represent about 20% of nodules detected in lung cancer screening, are invariably benign, and do not require follow-up. Nodules 10 mm or large r (or those with suspicious features) will continue to be managed based on the size criteria. Low Risk Patient -- minimal or absent history of smoking and of other known risk factors. High Risk Patient -- history of smoking or of other known risk factors. Nodule dimensions are average of long and short axes, rounded to the nearest millimeter. Based on 2017 Fleischner Society Guidelines found in Radiology 2017 284:228-243. https://doi.org/10.1148/radiol.1080259079 https://www.ncbi.nlm.nih.gov/pmc/articles/DVQ3490291/ Signer Name: Mat Lozada MD Signed: 12/18/2019 6:31 PM Workstation Name: [id number]
[2019-12-18] MEDS ORDERED: ASPIRIN 325 MG TAB ONE (20:24)
[2019-12-18] MEDS: MAGNESIUM OXIDE 400 MG TAB PO SCH (20:37)
--- NOTE | 2019-12-18 22:46 | History and Physical Report ---
History of Present Illness Date of examination: 12/19/19 Date of admission: 12/18/19 18:03 Chief complaint: Left arm weakness History of present illness: This is a 64-year-old man who states he has been homeless for the last 3 months. He states he had a "rough night". He slept on concrete. When he awoke he was unable to extend his right hand. He also complains of shortness of breath which is more acute today. He states he has been coughing yellow sputum to white foam for the last few months. He denies hemoptysis. He states he has not been recently hospitalized. He has an extensive medical history to include pacemaker/cardiomyopathy/CHF. In Er Ct brain is unremarkable UDS is positive for coccaine Magnesium#1.5 CRP#1.5 Ct chest is remarkable for lingual pneumonia and LLL nodule D-Dimer #983.33 bun/cr#7/0.8 Past History Past Medical History: acute [place], heart failure, hypertension, stroke, other (See HPI) Past Surgical History: Other (AICD/pacemaker placement) Social history: single, smoking, other (Polysubstance abuse, homelessness) Family history: hypertension Medications and Allergies Allergies Allergy/AdvReac Type Severity Reaction Status Date / Time No Known Allergies Allergy Verified 12/18/19 13:35 Home Medications Medication Instructions Recorded Confirmed Last Taken Type Aspirin EC [Halfprin EC] 81 mg PO QDAY #30 tablet 06/13/14 Unknown Rx Metoprolol [Lopressor TAB] 12.5 mg PO BID #60 tablet 06/13/14 Unknown Rx Rosuvastatin (Nf) [Crestor] 20 mg PO QHS #30 tablet 06/13/14 Unknown Rx lisinopriL [Zestril TAB] 2.5 mg PO QDAY #30 tablet 06/13/14 Unknown Rx Active Meds: Active Medications Acetaminophen (Tylenol) 650 mg PO Q4H PRN PRN Reason: Pain, Mild (1-3) Aspirin (Halfprin Ec) 81 mg PO QDAY ESRTELLA Atorvastatin Calcium (Lipitor) 40 mg PO QHS ESTRELLA Bisacodyl (Dulcolax) 10 mg [place] QDAY PRN PRN Reason: Constipation Ceftriaxone Sodium (Rocephin/Ns 2 Gm/100 Ml) 2 gm in 100 mls @ 200 mls/hr IV Q24HR ESTRELLA; Protocol Lisinopril (Zestril) 2.5 mg PO QDAY [facility] Magnesium Hydroxide (Milk Of Magnesia) 30 ml PO Q4H PRN PRN Reason: Constipation Magnesium Oxide (Mag-Ox) 400 mg PO QDAY [facility] Last Admin: 12/18/19 20:37 Dose: 400 mg Documented by: Metoclopramide HCl (Reglan) 10 mg PO Q6H PRN PRN Reason: Nausea And Vomiting Metoprolol Tartrate (Metoprolol) 12.5 mg PO BID [facility] Ondansetron HCl (Zofran) 4 mg IV Q8H PRN PRN Reason: Nausea And Vomiting Promethazine HCl (Phenergan) 25 mg [place] Q6H PRN PRN Reason: Nausea And Vomiting Sodium Chloride (Sodium Chloride Flush Syringe 10 Ml) 10 ml IV PRN PRN PRN Reason: LINE FLUSH Review of Systems ROS unobtainable: due to mental status Physical Examination - Vital Signs Vital Signs: Vital Signs Temp Pulse Resp BP Pulse Ox 98.2 F 109 H 26 H 172/109 93 12/18/19 13:45 12/18/19 13:45 12/18/19 13:45 12/18/19 13:45 12/18/19 13:45 - Constitutional General appearance: comfortable - EENT EENT: Present: PERRL - Cardiovascular Cardiovascular: Present: regular rate Extremities: Present: no peripheral edema bilatateraly - Integumentary Integumentary: Present: normal - Neurologic Cranial nerve examination: PERRL, EOMI, V1/V2/V3 grossly intact, tongue midline Speech examination: intact Sensorimotor examination: intact, other (he is with left wrist drop unchanged elbow flexor and extensor are intact ,no pronator drift,planter is down going he is with decrease sensation in both feet ,gait not done.) Results - Laboratory Findings CBC and BMP: 12/19/19 05:15 12/19/19 05:15 Abnormal Lab Findings: Abnormal Labs 12/18/19 12/18/19 12/18/19 15:20 15:20 15:20 MCHC 31 L RDW 19.6 H Taylor % (Auto) 8.7 H Seg Neutrophils % 71.3 H D-Dimer 982.33 H BUN 7 L Magnesium 1.50 L Direct Bilirubin 0.4 H Alkaline Phosphatase 134 H Lactate Dehydrogenase Total Creatine Kinase 183 H CK-MB (CK-2) 8.6 H CK-MB (CK-2) Rel Index 4.6 H C-Reactive Protein NT-Pro-B Natriuret Pep 39202 H Albumin 3.6 L 12/18/19 15:20 MCHC RDW Taylor % (Auto) Seg Neutrophils % D-Dimer BUN Magnesium Direct Bilirubin Alkaline Phosphatase Lactate Dehydrogenase 410 H Total Creatine Kinase CK-MB (CK-2) CK-MB (CK-2) Rel Index C-Reactive Protein 1.50 H NT-Pro-B Natriuret Pep Albumin Assessment and Plan 1- this is 64 years old male presented to ER with new onset of Left hand weakness finding from Hx and exam is suggestive of L. radial compressive neuropathy with intact strength at elbow no pronator drift , his NIH on admission is #0 with no sign to suggest CVA . Pt. is not candidate for TPA nor for thrombectomy. 2- Pneumonia noted on CT as well as Cxry and LLL nodule. 3- High risk for Delcid virus PCR is pending 4- HTN emergency 176/117 5-DM 6- CHF echo is pending 7- Pt. is with pace maker MRI can not be performed. PLAN 1-Pt evaluation 2- ID treat underlying infection. 3- Review Echo/US 4-control HTN <140/80 5-ASA 81 mg daily 6- Lipid profil and lipitor at 40 mg daily 7- Avid recreational drug !!! 8-DVT precaution 9- Cardiac monitoring 10- PT therapy /OT for left hand weakness and consider follow up with neurology as needed. will follow as needed
[2019-12-18] MEDS: METOPROLOL TARTRATE 25 MG TAB PO SCH (23:23)
[2019-12-19 06:16] LABS: BUN/Creatinine Ratio 9; Blood Urea Nitrogen 6 mg/dL (9-20); Calcium 8.9 mg/dL (8.4-10.2); Hemolysis Index 4
[2019-12-19 06:24] LABS: Basophils % (Auto) 0.7 % (0.0-1.8); Eosinophils # (Auto) 0.2 K/mm3 (0.0-0.4); Eosinophils % (Auto) 3.1 % (0.0-4.3); Hematocrit 37.6 % (35.5-45.6); Lymphocytes % (Auto) 17.7 % (13.4-35.0); Mean Corpuscular HGB Conc 32 % (32-34); Mean Corpuscular Volume 92 fl (84-94); Monocytes # (Auto) 0.6 K/mm3 (0.0-0.8); Platelet Count 168 K/mm3 (140-440)
[2019-12-19] MEDS: cefTRIAXone/NS 2 GM/100 ML 2 GM/100 ML BAG IV SCH (09:53)
[2019-12-19] MEDS: METOPROLOL TARTRATE 25 MG TAB PO SCH (09:55)
[2019-12-19] MEDS: ASPIRIN EC 81 MG TAB PO SCH (09:55)
[2019-12-19] MEDS: MAGNESIUM OXIDE 400 MG TAB PO SCH (09:56)
[2019-12-19] MEDS ORDERED: LISINOPRIL 5 MG TAB PO SCH (10:00)
--- NOTE | 2019-12-19 12:40 | Progress Note ---
Assessment and Plan Assessment and plan: CVA. Continue CVA protocol. Neurology consulted. Pneumonia. Continue IV antibiotics and follow-up serial chest x-ray. CT of the chest reveals a lingular infiltrate. ID consulted COVID-19 test negative12/19/2019 Acute systolic heart failure. Beta natruretic peptide greater than 10,000. Consulted cardiology. Start Lasix 40 mg IV daily. Ischemic cardiomyopathy. History of AICD. Tobacco abuse EtOH abuse. Cocaine abuse. Patient with UDS positive for cocaine. History Interval history: No new issues overnight. Hospitalist Physical - Constitutional Vitals: Temp Pulse Resp BP Pulse Ox 98.5 F 98 H 18 161/93 93 12/19/19 05:56 12/19/19 09:56 12/19/19 05:56 12/19/19 09:56 12/19/19 05:56 General appearance: Present: mild distress - EENT Eyes: Present: PERRL, EOM intact ENT: hearing intact, clear oral mucosa, dentition normal - Neck Neck: Present: supple, normal ROM - Respiratory Respiratory effort: normal Respiratory: bilateral: CTA - Cardiovascular Rhythm: regular Heart Sounds: Present: S1 & S2. Absent: gallop, rub - Extremities Extremities: no ischemia, No edema, Full ROM - Abdominal General gastrointestinal: soft, non-tender, non-distended, normal bowel sounds - Integumentary Integumentary: Present: clear, warm, dry - Neurologic Neurologic: CNII-XII intact, moves all extremities HEART Score - HEART Score Troponin: Troponin T 0.014 ng/mL (0.00-0.029) 12/18/19 15:20 Results - Labs CBC & Chem 7: 12/19/19 05:15 12/19/19 05:15 Labs: Laboratory Last Values WBC 5.7 K/mm3 (4.5-11.0) 12/19/19 05:15 RBC 4.10 M/mm3 (3.65-5.03) 12/19/19 05:15 Hgb 12.0 gm/dl (11.8-15.2) 12/19/19 05:15 Hct 37.6 % (35.5-45.6) 12/19/19 05:15 MCV 92 fl (84-94) 12/19/19 05:15 MCH 29 pg (28-32) 12/19/19 05:15 MCHC 32 % (32-34) 12/19/19 05:15 RDW 19.0 % (13.2-15.2) H 12/19/19 05:15 Plt Count 168 K/mm3 (140-440) 12/19/19 05:15 Lymph % (Auto) 17.7 % (13.4-35.0) 12/19/19 05:15 [place] % (Auto) 11.0 % (0.0-7.3) H 12/19/19 05:15 Eos % (Auto) 3.1 % (0.0-4.3) 12/19/19 05:15 Baso % (Auto) 0.7 % (0.0-1.8) 12/19/19 05:15 Lymph # 1.0 K/mm3 (1.2-5.4) L 12/19/19 05:15 [place] # 0.6 K/mm3 (0.0-0.8) 12/19/19 05:15 Eos # 0.2 K/mm3 (0.0-0.4) 12/19/19 05:15 Baso # 0.0 K/mm3 (0.0-0.1) 12/19/19 05:15 Seg Neutrophils % 67.5 % (40.0-70.0) 12/19/19 05:15 Seg Neutrophils # 3.8 K/mm3 (1.8-7.7) 12/19/19 05:15 PT 13.5 Sec. (12.2-14.9) 12/18/19 15:20 INR 1.02 (0.87-1.13) 12/18/19 15:20 APTT 25.9 Sec. (24.2-36.6) 12/18/19 15:20 D-Dimer 982.33 ng/mlDDU (0-234) H 12/18/19 15:20 Sodium 141 mmol/L (137-145) 12/19/19 05:15 Potassium 3.3 mmol/L (3.6-5.0) L D 12/19/19 05:15 Chloride 98.4 mmol/L (98-107) 12/19/19 05:15 Carbon Dioxide 30 mmol/L (22-30) 12/19/19 05:15 Anion Gap 16 mmol/L 05/29/20 05:15 BUN 6 mg/dL (9-20) L 12/19/19 05:15 Creatinine 0.7 mg/dL (0.8-1.5) L 12/19/19 05:15 Estimated GFR > 60 ml/min 12/19/19 05:15 BUN/Creatinine Ratio 9 % 12/19/19 05:15 Glucose 66 mg/dL (75-100) L 12/19/19 05:15 POC Glucose 153 (70-105) H 12/19/19 12:00 Lactic Acid 1.60 mmol/L (0.7-2.0) 12/18/19 17:05 Calcium 8.9 mg/dL (8.4-10.2) 12/19/19 05:15 Magnesium 1.50 mg/dL (1.7-2.3) L 12/19/19 05:39 Ferritin 19.7 ng/mL (13.0-400.0) 12/18/19 15:20 Total Bilirubin 0.80 mg/dL (0.1-1.2) 12/18/19 15:20 Direct Bilirubin 0.4 mg/dL (0-0.2) H 12/18/19 15:20 Indirect Bilirubin 0.4 mg/dL 12/18/19 15:20 AST 39 units/L (5-40) 12/18/19 15:20 ALT 23 units/L (7-56) 12/18/19 15:20 Alkaline Phosphatase 134 units/L (35-129) H 12/18/19 15:20 Lactate Dehydrogenase 410 units/L (91-180) H 12/18/19 15:20 Total Creatine Kinase 183 units/L (55-170) H 12/18/19 15:20 CK-MB (CK-2) 8.6 ng/mL (0.0-4.0) H 12/18/19 15:20 CK-MB (CK-2) Rel Index 4.6 (0-4) H 12/18/19 15:20 Troponin T 0.014 ng/mL (0.00-0.029) 12/18/19 15:20 C-Reactive Protein 1.50 mg/dL (0.00-1.30) H 12/18/19 15:20 NT-Pro-B Natriuret Pep 31087 pg/mL (0-900) H 12/18/19 15:20 Total Protein 7.8 g/dL (6.3-8.2) 12/18/19 15:20 Albumin 3.6 g/dL (3.9-5) L 12/18/19 15:20 Albumin/Globulin Ratio 0.9 % 12/18/19 15:20 Urine Color Colorless (Yellow) 12/18/19 14:55 Urine Turbidity Clear (Clear) 12/18/19 14:55 Urine pH 6.0 (5.0-7.0) 12/18/19 14:55 Ur Specific [place] 1.004 (1.003-1.030) 12/18/19 14:55 Urine Protein <15 mg/dl mg/dL (Negative) 12/18/19 14:55 Urine Glucose (UA) Neg mg/dL (Negative) 12/18/19 14:55 Urine Ketones Neg mg/dL (Negative) 12/18/19 14:55 Urine Blood Sm (Negative) 12/18/19 14:55 Urine Nitrite Neg (Negative) 12/18/19 14:55 Urine Bilirubin Neg (Negative) 12/18/19 14:55 Urine Urobilinogen < 2.0 mg/dL (<2.0) 12/18/19 14:55 Ur Leukocyte Esterase Neg (Negative) 12/18/19 14:55 Urine WBC (Auto) < 1.0 /HPF (0.0-6.0) 12/18/19 14:55 Urine RBC (Auto) 2.0 /HPF (0.0-6.0) 12/18/19 14:55 Urine Opiates Screen Presumptive negative 12/18/19 14:55 Urine Methadone Screen Presumptive negative 12/18/19 14:55 Ur Barbiturates Screen Presumptive negative 12/18/19 14:55 Ur Phencyclidine Scrn Presumptive negative 12/18/19 14:55 Ur Amphetamines Screen Presumptive negative 12/18/19 14:55 U Benzodiazepines Scrn Presumptive negative 12/18/19 14:55 Urine Cocaine Screen Presumptive positive 12/18/19 14:55 U Marijuana (THC) Screen Presumptive negative 12/18/19 14:55 Drugs of Abuse Note Disclamer 12/18/19 14:55 Plasma/Serum Alcohol < 0.01 % (0-0.07) 12/18/19 15:20 Microbiology: Microbiology 12/18/19 17:05 Peripheral/Venous Blood Culture - Preliminary Culture in Progress 12/18/19 17:05 Peripheral/Venous Blood Culture - Preliminary Culture in Progress [place]ell[place]/IV: Voiding Method Urinal IV Catheter Type [Right INT / Saline Lock Antecubital] Active Medications - Current Medications Current Medications: Generic Name Dose Route Start Last Admin Trade Name Freq PRN Reason Stop Dose Admin Acetaminophen 650 mg 12/18/19 18:03 Tylenol PO Q4H PRN Pain, Mild (1-3) Aspirin 81 mg 12/19/19 10:00 12/19/19 09:55 Halfprin Ec PO 81 mg QDAY ESTRELLA Administration Atorvastatin Calcium 40 mg 12/18/19 22:00 12/18/19 23:23 Lipitor PO 40 mg QHS ESTRELLA Administration Bisacodyl 10 mg 12/18/19 18:03 Dulcolax MA QDAY PRN Constipation Ceftriaxone Sodium 2 gm in 100 mls @ 200 mls/hr 12/19/19 10:00 12/19/19 09:53 Rocephin/Ns 2 Gm/100 Ml IV 200 mls/hr Q24HR ESTRELLA Administration Protocol Lisinopril 2.5 mg 12/19/19 10:00 12/19/19 09:56 Zestril PO 2.5 mg QDAY ESTRELLA Administration Magnesium Hydroxide 30 ml 12/18/19 18:03 Milk Of Magnesia PO Q4H PRN Constipation Magnesium Oxide 400 mg 12/18/19 18:00 12/19/19 09:56 Mag-Ox PO 400 mg QDAY ESTRELLA Administration Metoclopramide HCl 10 mg 12/18/19 18:03 Reglan PO Q6H PRN Nausea And Vomiting Metoprolol Tartrate 12.5 mg 12/18/19 22:00 12/19/19 09:55 Metoprolol PO 12.5 mg BID ESTRELLA Administration Ondansetron HCl 4 mg 12/18/19 18:03 Zofran IV Q8H PRN Nausea And Vomiting Promethazine HCl 25 mg 12/18/19 18:03 Phenergan MA Q6H PRN Nausea And Vomiting Sodium Chloride 10 ml 12/18/19 18:03 Sodium Chloride Flush Syringe 10 Ml IV PRN PRN LINE FLUSH
[2019-12-19] MEDS ORDERED: FUROSEMIDE 40 MG/4 ML INJ IV SCH (13:00)
[2019-12-19] MEDS ORDERED: METOPROLOL TARTRATE 25 MG TAB PO SCH (16:00)
--- NOTE | 2019-12-19 16:24 | Event Note ---
Date: 12/19/19 Patient was off floor to echo
[2019-12-19] MEDS ORDERED: MAGNESIUM SULFATE 2 GM/50 ML BAG IV ONE (16:29)
--- NOTE | 2019-12-19 16:34 | Consultation ---
History of Present Illness - Reason for Consult Consult date: 12/19/19 r/o COVID Requesting physician: LAKESHA PORTER - History of Present Illness 64 years old male with history of hypertension, CVA, CAD/IA, CHF status post AICD placement, diabetes, polysubstance abuse, homelessness, admitted on 12/18/2019 due to low 24-hour history of acute left hand weakness and slurred speech associated with shortness of breath, productive cough with yellow sputum and sweats. He does report several days of acute diarrhea. Patient reports a possible contact with a COVID-19 patient. Patient is not the best historian. On arrival, initial WBC 6.8, hemoglobin 13, platelets 176. D-dimer 982. Creatinine 0.8. Ferritin 19. LDH 410. CRP 1.5. Urinalysis negative. COVID- 19 test negative. Blood culture 12/15/2019 pending. Chest x-ray showed left upper lobe infiltrate. CTA of the chest showed lingular infiltrate and 9 mm lung nodule. Review of Systems: positive in bold print General: fever, chills, malaise Cutaneous: rash, pruritus Head: headaches or injury Eyes: changes in vision, eye pain, double vision Ears: ear pain, ear discharge, ringing or hearing loss Nose: nose bleeding, stuffiness Mouth & throat: bleeding gums, horseness, no dental problems, or swollen glands Neck: no pain, node enlargement/lumps, tyroid enlargement or tenderness Respiratory: SOB, cough, MACHUCA, wheezing, sputum, hemoptysis, pleuritic chest pain Cardiovascular: chest pain, leg edema, cyanosis, MACHUCA, orthopnea Musculoskeletal: edema, deformities, pain Gastrointestinal: nausea, vomiting, hematemesis, diarrhea, constipation, melena, bright red blood in stools, fecal incontinence, jaundice Genitourinary/Reproductive: frequent urination, dysuria, hematuria, incontinence Neurogical: seizures, headaches, weakness, paresthesias, loss of speech or vision; memory loss, vertigo, tremors, numbness Psychiatric: stable mood; excessive anxiety, sadness or moodiness Past History Past Medical History: acute IA, heart failure, hypertension, stroke, other (See HPI) Past Surgical History: Other (AICD/pacemaker placement) Social history: single, smoking, other (Polysubstance abuse, homelessness) Family history: hypertension Medications and Allergies Allergies Allergy/AdvReac Type Severity Reaction Status Date / Time No Known Allergies Allergy Verified 12/18/19 13:35 Home Medications Medication Instructions Recorded Confirmed Last Taken Type Aspirin EC [Halfprin EC] 81 mg PO QDAY #30 tablet 06/13/14 Unknown Rx Metoprolol [Lopressor TAB] 12.5 mg PO BID #60 tablet 06/13/14 Unknown Rx Rosuvastatin (Nf) [Crestor] 20 mg PO QHS #30 tablet 06/13/14 Unknown Rx lisinopriL [Zestril TAB] 2.5 mg PO QDAY #30 tablet 06/13/14 Unknown Rx Active Meds: Active Medications Acetaminophen (Tylenol) 650 mg PO Q4H PRN PRN Reason: Pain, Mild (1-3) Aspirin (Halfprin Ec) 81 mg PO QDAY [facility] Last Admin: 12/19/19 09:55 Dose: 81 mg Documented by: Atorvastatin Calcium (Lipitor) 40 mg PO QHS [facility] Last Admin: 12/18/19 23:23 Dose: 40 mg Documented by: Bisacodyl (Dulcolax) 10 mg [place] QDAY PRN PRN Reason: Constipation Furosemide (Lasix) 40 mg IV BID [facility] Ceftriaxone Sodium (Rocephin/Ns 2 Gm/100 Ml) 2 gm in 100 mls @ 200 mls/hr IV Q24HR [facility]; Protocol Last Admin: 12/19/19 09:53 Dose: 200 mls/hr Documented by: Magnesium Sulfate (Magnesium Sulfate 2gm/50ml) 2 gm in 50 mls @ 25 mls/hr IV ONCE ONE Stop: 12/19/19 18:28 Lisinopril (Zestril) 10 mg PO QDAY [facility] Magnesium Hydroxide (Milk Of Magnesia) 30 ml PO Q4H PRN PRN Reason: Constipation Magnesium Oxide (Mag-Ox) 400 mg PO QDAY [facility] Last Admin: 12/19/19 09:56 Dose: 400 mg Documented by: Metoclopramide HCl (Reglan) 10 mg PO Q6H PRN PRN Reason: Nausea And Vomiting Metoprolol Tartrate (Metoprolol) 50 mg PO BID [facility] Ondansetron HCl (Zofran) 4 mg IV Q8H PRN PRN Reason: Nausea And Vomiting Promethazine HCl (Phenergan) 25 mg [place] Q6H PRN PRN Reason: Nausea And Vomiting Sodium Chloride (Sodium Chloride Flush Syringe 10 Ml) 10 ml IV PRN PRN PRN Reason: LINE FLUSH Physical Examination - Physical Exam Narrative exam: General appearance: Alert in NAD Eyes: anicteric sclerae, moist conjunctivae; no lid-lag; PERRLA HENT: Atraumatic; oropharynx clear with moist mucous membranes and no oral thrush; normal hard and soft palate. Lungs: CTA, with normal respiratory effort and no intercostal retractions CV: RRR no murmur Abdomen: Soft, non-tender; no masses or hepatosplenomegaly Extremities: no edema, no cyanosis Skin: No rash. Psych: Appropriate affect, alert and oriented to person, place and time. Neuro: alert and oriented x 3. Moving all extermities - Constitutional Vitals: Vital Signs Temp Pulse Resp BP Pulse Ox 98.0 F 98 H 20 151/98 96 12/19/19 11:51 12/19/19 14:22 12/19/19 11:51 12/19/19 11:51 12/19/19 14:22 Temperature -Last 24 Hours Temperature 98.0 F Temperature 98.5 F Temperature 98.8 F Temperature 98.9 F Results - Labs CBC & Chem 7: 12/19/19 05:15 12/19/19 05:15 Labs: Abnormal lab results 12/19/19 12/19/19 12/19/19 Range/Units 05:15 05:15 05:39 RDW 19.0 H (13.2-15.2) % [place] % (Auto) 11.0 H (0.0-7.3) % Lymph # 1.0 L (1.2-5.4) K/mm3 Potassium 3.3 L D (3.6-5.0) mmol/L BUN 6 L (9-20) mg/dL Creatinine 0.7 L (0.8-1.5) mg/dL Glucose 66 L (75-100) mg/dL POC Glucose (70-105) Magnesium 1.50 L (1.7-2.3) mg/dL 12/19/19 12/19/19 Range/Units 08:06 12:00 RDW (13.2-15.2) % [place] % (Auto) (0.0-7.3) % Lymph # (1.2-5.4) K/mm3 Potassium (3.6-5.0) mmol/L BUN (9-20) mg/dL Creatinine (0.8-1.5) mg/dL Glucose (75-100) mg/dL POC Glucose 61 L 153 H (70-105) Magnesium (1.7-2.3) mg/dL Assessment and Plan Cultures: Blood cultures 12/18/2019 no growth today Assessment: 64 years old male with history of hypertension, CVA, CAD/IA, CHF status post AICD placement, diabetes, polysubstance abuse, homelessness, admitted on 12/18/2019 due to low 24-hour history of acute left hand weakness and slurred speech associated with shortness of breath, productive cough with yellow sputum and sweats: #Possible lingular pneumonia: Likely bacterial, COVID-19 test negative. Inflammatory markers including ferritin, S CRP within normal limits. D-dimer mildly elevated. #Polysubstance abuse: Cocaine positive #Homelessness #Possible CVA, per primary team Recommendations: Follow-up blood cultures Continue ceftriaxone 2 g IV once a day Add azithromycin 500 g IV once a day CVA evaluation ongoing Will follow. Ingris Tucker MD Infectious Diseases [employer] [facility] M [phone] O [phone]
--- NOTE | 2019-12-19 16:36 | Consultation ---
History of Present Illness Consult date: 12/19/19 Requesting physician: MANJIT GREENBERG Consult reason: congestive heart failure History of present illness: Pt is a 64 y.o. male with a past medical hx of ICMP s/p AICD (EF 20-25% in 2010), prior CO, prior CVA, chronic HFrEF, HTN, DM2, and polysubstance abuse (including tobacco, etoh, cocaine). He has been seen by our practice during previous hospitalizations. Pt reports he has been homeless for approximately 3 months and is typically followed at [place]. He presented to [facility] c/o slurred speech and L hand weakness that began last night. Pt also endorses acute SOB and productive cough. He denies chest pain, palpitations, diaphoresis, dizziness, lightheadedness, syncope, claudication, N/V, and fever/chills. Pt admits non- compliance with cardiac regimen and follow-up appts. BNP 21358. CXR reveals HEMA opacity. Chest CTA negative for PE, reveals LLL pulm nodule. Past History Past Medical History: diabetes, heart failure, hypertension, stroke, other (ICMP, h/o CO, h/o CVA) Past Surgical History: Other (AICD) Social history: single, smoking, other (polysubstance abuse, homelessness) Family history: hypertension Medications and Allergies Allergies Allergy/AdvReac Type Severity Reaction Status Date / Time No Known Allergies Allergy Verified 12/18/19 13:35 Home Medications Medication Instructions Recorded Confirmed Last Taken Type Aspirin EC [Halfprin EC] 81 mg PO QDAY #30 tablet 06/13/14 Unknown Rx Metoprolol [Lopressor TAB] 12.5 mg PO BID #60 tablet 06/13/14 Unknown Rx Rosuvastatin (Nf) [Crestor] 20 mg PO QHS #30 tablet 06/13/14 Unknown Rx lisinopriL [Zestril TAB] 2.5 mg PO QDAY #30 tablet 06/13/14 Unknown Rx Active Meds: Active Medications Acetaminophen (Tylenol) 650 mg PO Q4H PRN PRN Reason: Pain, Mild (1-3) Aspirin (Halfprin Ec) 81 mg PO QDAY [facility] Last Admin: 12/19/19 09:55 Dose: 81 mg Documented by: Atorvastatin Calcium (Lipitor) 40 mg PO QHS [facility] Last Admin: 12/18/19 23:23 Dose: 40 mg Documented by: Bisacodyl (Dulcolax) 10 mg [place] QDAY PRN PRN Reason: Constipation Furosemide (Lasix) 40 mg IV BID [facility] Ceftriaxone Sodium (Rocephin/Ns 2 Gm/100 Ml) 2 gm in 100 mls @ 200 mls/hr IV Q24HR [facility]; Protocol Last Admin: 12/19/19 09:53 Dose: 200 mls/hr Documented by: Magnesium Sulfate (Magnesium Sulfate 2gm/50ml) 2 gm in 50 mls @ 25 mls/hr IV ONCE ONE Stop: 12/19/19 18:28 Lisinopril (Zestril) 10 mg PO QDAY [facility] Magnesium Hydroxide (Milk Of Magnesia) 30 ml PO Q4H PRN PRN Reason: Constipation Magnesium Oxide (Mag-Ox) 400 mg PO QDAY [facility] Last Admin: 12/19/19 09:56 Dose: 400 mg Documented by: Metoclopramide HCl (Reglan) 10 mg PO Q6H PRN PRN Reason: Nausea And Vomiting Metoprolol Tartrate (Metoprolol) 50 mg PO BID [facility] Ondansetron HCl (Zofran) 4 mg IV Q8H PRN PRN Reason: Nausea And Vomiting Promethazine HCl (Phenergan) 25 mg [place] Q6H PRN PRN Reason: Nausea And Vomiting Sodium Chloride (Sodium Chloride Flush Syringe 10 Ml) 10 ml IV PRN PRN PRN Reason: LINE FLUSH Review of Systems Constitutional: no fever, no chills, no sweats Ears, nose, mouth and throat: no tinnitis, no nasal congestion, no epistaxis, no bleeding gums, no dysphagia, no sore throat Cardiovascular: orthopnea, edema, shortness of breath, no chest pain, no palpitations, no lightheadedness, no claudication Respiratory: cough with sputum, shortness of breath, no wheezing Gastrointestinal: no abdominal pain, no nausea, no vomiting, no diarrhea, no constipation Genitourinary Male: no dysuria, no flank pain Musculoskeletal: no neck stiffness, no neck pain Integumentary: no rash, no wounds Neurological: weakness (L hand), change in speech, no head injury, no numbness, no tingling, no seizures, no syncope, no vertigo, no headaches Endocrine: no cold intolerance, no heat intolerance Hematologic/Lymphatic: no easy bruising, no easy bleeding Allergic/Immunologic: no urticaria Physical Examination Last Vital Signs Temp 98.0 F 12/19/19 11:51 Pulse 98 H 12/19/19 14:22 Resp 20 12/19/19 11:51 BP 151/98 12/19/19 11:51 Pulse Ox 96 12/19/19 14:22 General appearance: no acute distress HEENT: Positive: EOMI, Normocephaly, Mucus Membranes Moist Neck: Positive: neck supple, trachea midline. Negative: JVD/HJR Cardiac: Positive: Reg Rate and Rhythm, S1/S2 Lungs: Positive: Decreased Breath Sounds (bilaterally) Neuro: Positive: Grossly Intact Abdomen: Positive: Soft, Active Bowel Sounds. Negative: Tender Skin: Negative: Rash, Wound Musculoskeletal: No Pain, Normal Range of Motion Extremities: Present: upper extr. pulses, lower extr. pulses, +2 Edema (BLE) Results 12/19/19 05:15 12/19/19 05:15 CBC 12/19/19 Range/Units 05:15 WBC 5.7 (4.5-11.0) K/mm3 RBC 4.10 (3.65-5.03) M/mm3 Hgb 12.0 (11.8-15.2) gm/dl Hct 37.6 (35.5-45.6) % Plt Count 168 (140-440) K/mm3 Lymph # 1.0 L (1.2-5.4) K/mm3 [place] # 0.6 (0.0-0.8) K/mm3 Eos # 0.2 (0.0-0.4) K/mm3 Baso # 0.0 (0.0-0.1) K/mm3 Comprehensive Metabolic Panel 12/19/19 Range/Units 05:15 Sodium 141 (137-145) mmol/L Potassium 3.3 L D (3.6-5.0) mmol/L Chloride 98.4 (98-107) mmol/L Carbon Dioxide 30 (22-30) mmol/L BUN 6 L (9-20) mg/dL Creatinine 0.7 L (0.8-1.5) mg/dL Glucose 66 L (75-100) mg/dL Calcium 8.9 (8.4-10.2) mg/dL - Imaging and Cardiology Echo: pending EKG: report reviewed, image reviewed - EKG Interpretation EKG: no acute changes EKG interpretations - Telemetry EKG Rhythm: Sinus Rhythm - EKG Sinus rhythms and dysrhythmias: sinus rhythm Chamber hypertrophy or enlargement: left atrial enlargement Assessment and Plan Of note, pt reported to have 9-beat run of VT @ 1338 and 12-beat run of VT @ 1426. AICD in situ. Echo pending read. Initiate IV Lasix 40mg BID with strict I/Os. Increase PO Lopressor to 50mg BID. Increase PO Lisinopril to 10mg qDay. Replete K and Mg. Check BMP and Mg in AM. Neuro recs noted. Pt seen in conjunction with Dr. Fatima, who agrees with the assessment and plan of care. - Patient Problems (1) Pneumonia Current Visit: Yes Status: Acute Qualifiers: Laterality: left Lung location: upper lobe of lung (2) Ischemic cardiomyopathy Current Visit: Yes Status: Chronic (3) Automatic implantable cardioverter-defibrillator in situ Current Visit: Yes Status: Chronic (4) Acute on chronic HFrEF (heart failure with reduced ejection fraction) Current Visit: Yes Status: Acute (5) Hypokalemia Current Visit: Yes Status: Acute (6) Hypomagnesemia Current Visit: Yes Status: Acute (7) Hypertension Current Visit: Yes Status: Chronic Qualifiers: Hypertension type: essential hypertension Qualified Code(s): I10 - Essential (primary) hypertension (8) Diabetes Current Visit: Yes Status: Chronic Qualifiers: Diabetes mellitus type: type 2 (9) Noncompliance Current Visit: Yes Status: Chronic (10) Tobacco abuse Current Visit: Yes Status: Chronic (11) ETOH abuse Current Visit: Yes Status: Chronic (12) Cocaine abuse Current Visit: Yes Status: Chronic
--- NOTE | 2019-12-19 17:46 | Vascular Lab Report ---
"DUPLEX DOPPLER ULTRASOUND CAROTID, BILATERAL INDICATION: stroke. FINDINGS: RIGHT CAROTID: No significant atherosclerotic plaque. Right CCA velocity: 105 cm/sec. Right ICA peak systolic velocity: 64 cm/sec. ICA/CCA PSV Ratio: 0.61. Right Vertebral Artery: Antegrade flow. LEFT CAROTID: No significant atherosclerotic plaque Left CCA velocity: 54 cm/sec. Left ICA peak systolic velocity: 51 cm/sec. ICA/CCA PSV Ratio: 0.95. Left Vertebral Artery: Antegrade flow. IMPRESSION: 1. Right Internal Carotid Artery: Less than 50% diameter stenosis. 2. Left Internal Carotid Artery: Less than 50% diameter stenosis. Velocity criteria are extrapolated from diameter data as defined by the Society of Radiologists in Ul trasound Consensus Conference, Radiology 2003; 229;340-346. Degree of Stenosis (%) || ICA PSV (cm/sec) || Plaque estimate (%) || ICA/CCA PSV Ratio Normal <125 None <2.0 <50 <125 <50 <2.0 50-69 125-230 50 2.0-4.0 70 but less than 100 >230 50 >4.0 Near occlusion High, low, or none visible variable Total occlusion None visible; no lumen N/A Signer Name: Bill Goldman MD Signed: 12/19/2019 5:41 PM Workstation Name: [id number]
[2019-12-19] MEDS: ACETAMINOPHEN 325 MG TAB PO PRN (18:03)
[2019-12-19] MEDS: METOPROLOL TARTRATE 50 MG TAB PO SCH ×2 (18:04→23:46)
[2019-12-19] MEDS: LISINOPRIL 10 MG TAB PO SCH (18:04)
[2019-12-19] MEDS: FUROSEMIDE 40 MG/4 ML INJ IV SCH (23:46)
[2019-12-20 06:29] LABS: Basophils % (Auto) 0.5 % (0.0-1.8); Eosinophils # (Auto) 0.3 K/mm3 (0.0-0.4); Eosinophils % (Auto) 4.1 % (0.0-4.3); Hematocrit 36.4 % (35.5-45.6); Hemoglobin 11.5 gm/dl (11.8-15.2); Lymphocytes # (Auto) 1.1 K/mm3 (1.2-5.4); Lymphocytes % (Auto) 17.2 % (13.4-35.0); Mean Corpuscular HGB Conc 32 % (32-34); Mean Corpuscular Volume 93 fl (84-94); Monocytes # (Auto) 0.6 K/mm3 (0.0-0.8); Monocytes % (Auto) 9.9 % (0.0-7.3); Platelet Count 161 K/mm3 (140-440); Red Blood Count 3.93 M/mm3 (3.65-5.03); Red Cell Distribution Width 18.5 % (13.2-15.2)
[2019-12-20 06:47] LABS: BUN/Creatinine Ratio 13; Blood Urea Nitrogen 12 mg/dL (9-20); Calcium 8.5 mg/dL (8.4-10.2); Hemolysis Index 6
[2019-12-20] MEDS: METOPROLOL TARTRATE 50 MG TAB PO SCH ×2 (10:13→21:10)
[2019-12-20] MEDS: MAGNESIUM OXIDE 400 MG TAB PO SCH (10:13)
[2019-12-20] MEDS: LISINOPRIL 10 MG TAB PO SCH (10:14)
[2019-12-20] MEDS: cefTRIAXone/NS 2 GM/100 ML 2 GM/100 ML BAG IV SCH (10:15)
[2019-12-20] MEDS: FUROSEMIDE 40 MG/4 ML INJ IV SCH (10:15)
[2019-12-20] MEDS: ASPIRIN EC 81 MG TAB PO SCH (10:15)
--- NOTE | 2019-12-20 10:41 | Progress Note ---
Assessment and Plan Consult date: 12/19/19 Requesting physician: MANJIT GREENBERG Consult reason: congestive heart failure History of present illness: Pt is a 64 y.o. male with a past medical hx of ICMP s/p AICD (EF 20-25% in 2010), prior [place], prior CVA, chronic HFrEF, HTN, DM2, and polysubstance abuse (including tobacco, etoh, cocaine). He has been seen by our practice during previous hospitalizations. Pt reports he has been homeless for approximately 3 months and is typically followed at [facility]. He presented to [facility] c/o slurred speech and L hand weakness that began last night. Pt also endorses acute SOB and productive cough. He denies chest pain, palpitations, diaphoresis, dizziness, lightheadedness, syncope, claudication, N/V, and fever/chills. Pt admits non- compliance with cardiac regimen and follow-up appts. BNP 04964. CXR reveals HEMA opacity. Chest CTA negative for PE, reveals LLL pulm nodule. 12/20/2019>Patient denies any chest pain,no significant SOB,echo showed EF 25- 30%,continue diuretic,will decrease Furosemide to once a day.Monitor on telemetry.Having asymptomatic non sustained VT.Labs were reviewed. - Patient Problems (1) Acute on chronic HFrEF (heart failure with reduced ejection fraction) Current Visit: Yes Status: Acute (2) Cardiomyopathy Current Visit: Yes Status: Acute Qualifiers: Cardiomyopathy type: unspecified Qualified Code(s): I42.9 - Cardiomyopathy, unspecified (3) Person under investigation for COVID-19 Current Visit: Yes Status: Acute (4) Pneumonia Current Visit: Yes Status: Acute Qualifiers: Laterality: left Lung location: upper lobe of lung (5) Automatic implantable cardioverter-defibrillator in situ Current Visit: Yes Status: Chronic (6) Cocaine abuse Current Visit: Yes Status: Chronic (7) Diabetes Current Visit: Yes Status: Chronic Qualifiers: Diabetes mellitus type: type 2 (8) ETOH abuse Current Visit: Yes Status: Chronic (9) Hypertension Current Visit: Yes Status: Chronic Qualifiers: Hypertension type: essential hypertension Qualified Code(s): I10 - Essential (primary) hypertension Subjective Date of service: 12/20/19 Interval history: Patient is comfortable, had one short episode of non sustained VT,7 beat according to RN.Asymptomatic. Objective Vital Signs Temp Pulse Pulse Resp BP Pulse Ox 12/20/19 10:14 86 142/88 12/20/19 10:13 86 142/88 12/20/19 04:50 99.0 F 86 20 142/88 100 12/19/19 23:46 90 129/81 12/19/19 22:00 88 98 H 98 12/19/19 21:40 98.7 F 20 129/81 12/19/19 21:05 96 12/19/19 20:00 88 12/19/19 18:04 94 H 137/80 12/19/19 16:39 97.7 F 94 H 18 137/80 91 12/19/19 14:22 98 H 96 12/19/19 11:51 98.0 F 86 20 151/98 100 - Physical Examination HEENT: Positive: EOMI, Normocephaly, Mucus Membranes Moist Neck: Positive: neck supple, trachea midline. Negative: JVD/HJR Cardiac: Positive: Reg Rate and Rhythm, S1/S2 Lungs: Positive: Decreased Breath Sounds (bilaterally.) Neuro: Positive: Grossly Intact Abdomen: Positive: Soft, Active Bowel Sounds. Negative: Tender Skin: Negative: Rash, Wound Musculoskeletal: No Pain, Normal Range of Motion Extremities: Present: upper extr. pulses, lower extr. pulses, +2 Edema (BLE) - Labs and Meds CBC 12/20/19 Range/Units 04:39 WBC 6.3 (4.5-11.0) K/mm3 RBC 3.93 (3.65-5.03) M/mm3 Hgb 11.5 L (11.8-15.2) gm/dl Hct 36.4 (35.5-45.6) % Plt Count 161 (140-440) K/mm3 Lymph # 1.1 L (1.2-5.4) K/mm3 Frio # 0.6 (0.0-0.8) K/mm3 Eos # 0.3 (0.0-0.4) K/mm3 Baso # 0.0 (0.0-0.1) K/mm3 Comprehensive Metabolic Panel 12/20/19 Range/Units 04:39 Sodium 142 (137-145) mmol/L Potassium 3.5 L (3.6-5.0) mmol/L Chloride 95.5 L (98-107) mmol/L Carbon Dioxide 35 H (22-30) mmol/L BUN 12 (9-20) mg/dL Creatinine 0.9 (0.8-1.5) mg/dL Glucose 140 H (75-100) mg/dL Calcium 8.5 (8.4-10.2) mg/dL - Imaging and Cardiology EKG: report reviewed, image reviewed Echo: pending, other (12/19/2019>LVEF 25-30%,RVSP 43 mm hg.) - EKG Sinus rhythms and dysrhythmias: sinus rhythm Chamber hypertrophy or enlargement: left atrial enlargement
--- NOTE | 2019-12-20 12:21 | Progress Note ---
Assessment and Plan Assessment and plan: CVA. Continue CVA protocol. Neurology consulted. Acute hypoxemic respiratory failure. Etiology secondary to community-acquired pneumonia and systolic heart failure. CTA of chest negative. Pneumonia. Continue IV antibiotics and follow-up serial chest x-ray. CT of the chest reveals a lingular infiltrate. ID consulted COVID-19 test negative12/19/2019 Acute systolic heart failure. Beta natruretic peptide greater than 10,000. Consulted cardiology. Start Lasix 40 mg IV daily. Ischemic cardiomyopathy. History of AICD. Tobacco abuse EtOH abuse. Cocaine abuse. Patient with UDS positive for cocaine. 12/20/2019. Echocardiogram revealed EF of 25 to 30%. Continue aspirin and Lipitor and afterload reduction with Zestril.. Continue ceftriaxone. Patient also with asymptomatic nonsustained V. tach--continue metoprolol 50 mg twice daily. Cardiology and pulmonary following. Inflammatory markers within normal limits. PT/OT evaluation. Await PT recommendations for disposition. Neurology reports left hand weakness likely L. radial compressive neuropathy with intact strength at elbow no pronator drift History Interval history: No new issues overnight. Hospitalist Physical - Constitutional Vitals: Temp Pulse Resp BP Pulse Ox 99.0 F 86 20 142/88 100 12/20/19 04:50 12/20/19 10:14 12/20/19 04:50 12/20/19 10:14 12/20/19 04:50 General appearance: Present: no acute distress - EENT Eyes: Present: PERRL, EOM intact ENT: hearing intact, clear oral mucosa, dentition normal - Neck Neck: Present: supple, normal ROM - Respiratory Respiratory effort: normal Respiratory: bilateral: CTA - Cardiovascular Rhythm: regular Heart Sounds: Present: S1 & S2. Absent: gallop, rub - Extremities Extremities: no ischemia, No edema, Full ROM - Abdominal General gastrointestinal: soft, non-tender, non-distended, normal bowel sounds - Integumentary Integumentary: Present: clear, warm, dry - Neurologic Neurologic: CNII-XII intact, moves all extremities HEART Score - HEART Score Troponin: Troponin T 0.014 ng/mL (0.00-0.029) 12/18/19 15:20 Results - Labs CBC & Chem 7: 12/20/19 04:39 12/20/19 04:39 Labs: Laboratory Last Values WBC 6.3 K/mm3 (4.5-11.0) 12/20/19 04:39 RBC 3.93 M/mm3 (3.65-5.03) 12/20/19 04:39 Hgb 11.5 gm/dl (11.8-15.2) L 12/20/19 04:39 Hct 36.4 % (35.5-45.6) 12/20/19 04:39 MCV 93 fl (84-94) 12/20/19 04:39 MCH 29 pg (28-32) 12/20/19 04:39 MCHC 32 % (32-34) 12/20/19 04:39 RDW 18.5 % (13.2-15.2) H 12/20/19 04:39 Plt Count 161 K/mm3 (140-440) 12/20/19 04:39 Lymph % (Auto) 17.2 % (13.4-35.0) 12/20/19 04:39 [place] % (Auto) 9.9 % (0.0-7.3) H 12/20/19 04:39 Eos % (Auto) 4.1 % (0.0-4.3) 12/20/19 04:39 Baso % (Auto) 0.5 % (0.0-1.8) 12/20/19 04:39 Lymph # 1.1 K/mm3 (1.2-5.4) L 12/20/19 04:39 [place] # 0.6 K/mm3 (0.0-0.8) 12/20/19 04:39 Eos # 0.3 K/mm3 (0.0-0.4) 12/20/19 04:39 Baso # 0.0 K/mm3 (0.0-0.1) 12/20/19 04:39 Seg Neutrophils % 68.3 % (40.0-70.0) 12/20/19 04:39 Seg Neutrophils # 4.3 K/mm3 (1.8-7.7) 12/20/19 04:39 PT 13.5 Sec. (12.2-14.9) 12/18/19 15:20 INR 1.02 (0.87-1.13) 12/18/19 15:20 APTT 25.9 Sec. (24.2-36.6) 12/18/19 15:20 D-Dimer 982.33 ng/mlDDU (0-234) H 12/18/19 15:20 Sodium 142 mmol/L (137-145) 12/20/19 04:39 Potassium 3.5 mmol/L (3.6-5.0) L 12/20/19 04:39 Chloride 95.5 mmol/L (98-107) L 12/20/19 04:39 Carbon Dioxide 35 mmol/L (22-30) H 12/20/19 04:39 Anion Gap 15 mmol/L 12/20/19 04:39 BUN 12 mg/dL (9-20) 12/20/19 04:39 Creatinine 0.9 mg/dL (0.8-1.5) 12/20/19 04:39 Estimated GFR > 60 ml/min 12/20/19 04:39 BUN/Creatinine Ratio 13 % 12/20/19 04:39 Glucose 140 mg/dL (75-100) H 12/20/19 04:39 POC Glucose 140 (70-105) H 12/20/19 11:36 Lactic Acid 1.60 mmol/L (0.7-2.0) 12/18/19 17:05 Calcium 8.5 mg/dL (8.4-10.2) 12/20/19 04:39 Magnesium 1.50 mg/dL (1.7-2.3) L 12/20/19 07:55 Ferritin 19.7 ng/mL (13.0-400.0) 12/18/19 15:20 Total Bilirubin 0.80 mg/dL (0.1-1.2) 12/18/19 15:20 Direct Bilirubin 0.4 mg/dL (0-0.2) H 12/18/19 15:20 Indirect Bilirubin 0.4 mg/dL 12/18/19 15:20 AST 39 units/L (5-40) 12/18/19 15:20 ALT 23 units/L (7-56) 12/18/19 15:20 Alkaline Phosphatase 134 units/L (35-129) H 12/18/19 15:20 Lactate Dehydrogenase 410 units/L (91-180) H 12/18/19 15:20 Total Creatine Kinase 183 units/L (55-170) H 12/18/19 15:20 CK-MB (CK-2) 8.6 ng/mL (0.0-4.0) H 12/18/19 15:20 CK-MB (CK-2) Rel Index 4.6 (0-4) H 12/18/19 15:20 Troponin T 0.014 ng/mL (0.00-0.029) 12/18/19 15:20 C-Reactive Protein 1.50 mg/dL (0.00-1.30) H 12/18/19 15:20 NT-Pro-B Natriuret Pep 69918 pg/mL (0-900) H 12/18/19 15:20 Total Protein 7.8 g/dL (6.3-8.2) 12/18/19 15:20 Albumin 3.6 g/dL (3.9-5) L 12/18/19 15:20 Albumin/Globulin Ratio 0.9 % 12/18/19 15:20 Procalcitonin < 0.05 ng/mL (<0.15) 12/18/19 15:20 Urine Color Colorless (Yellow) 12/18/19 14:55 Urine Turbidity Clear (Clear) 12/18/19 14:55 Urine pH 6.0 (5.0-7.0) 12/18/19 14:55 Ur Specific [place] 1.004 (1.003-1.030) 12/18/19 14:55 Urine Protein <15 mg/dl mg/dL (Negative) 12/18/19 14:55 Urine Glucose (UA) Neg mg/dL (Negative) 12/18/19 14:55 Urine Ketones Neg mg/dL (Negative) 12/18/19 14:55 Urine Blood Sm (Negative) 12/18/19 14:55 Urine Nitrite Neg (Negative) 12/18/19 14:55 Urine Bilirubin Neg (Negative) 12/18/19 14:55 Urine Urobilinogen < 2.0 mg/dL (<2.0) 12/18/19 14:55 Ur Leukocyte Esterase Neg (Negative) 12/18/19 14:55 Urine WBC (Auto) < 1.0 /HPF (0.0-6.0) 12/18/19 14:55 Urine RBC (Auto) 2.0 /HPF (0.0-6.0) 12/18/19 14:55 Urine Opiates Screen Presumptive negative 12/18/19 14:55 Urine Methadone Screen Presumptive negative 12/18/19 14:55 Ur Barbiturates Screen Presumptive negative 12/18/19 14:55 Ur Phencyclidine Scrn Presumptive negative 12/18/19 14:55 Ur Amphetamines Screen Presumptive negative 12/18/19 14:55 U Benzodiazepines Scrn Presumptive negative 12/18/19 14:55 Urine Cocaine Screen Presumptive positive 12/18/19 14:55 U Marijuana (THC) Screen Presumptive negative 12/18/19 14:55 Drugs of Abuse Note Disclamer 12/18/19 14:55 Plasma/Serum Alcohol < 0.01 % (0-0.07) 12/18/19 15:20 Coronavirus (PCR) Negative (Negative) 12/19/19 07:25 Microbiology: Microbiology 12/18/19 17:05 Peripheral/Venous Blood Culture - Preliminary NO GROWTH AFTER 24 HOURS 12/18/19 17:05 Peripheral/Venous Blood Culture - Preliminary NO GROWTH AFTER 24 HOURS - Diagnostic Impressions Diagnostic Impressions: Echocardiogram 12/18/19 18:04 Transthoracic Echocardiogram Indication: Stroke BP: 115/78 HR: 87 Conclusions *Global left ventricular systolic function is moderate to severely decreased. *The estimated ejection fraction is 25-30%. *Mild to moderate concentric left ventricular hypertrophy is observed. *Abnormal left ventricular diastolic filling is observed, consistent with impaired relaxation. *A pacemaker wire is visualized in the right ventricle. *No atrial septal defected is demonstrated by agitated saline contrast. *There is no evidence of aortic regurgitation. *There is mild mitral regurgitation. *There is mild tricuspid regurgitation. *The right ventricular systolic pressure is calculated at 43 mmHg. *There is trace pulmonic regurgitation. *There is no change in the dimension of the inferior vena cava with respiration consistent with markedly increased right atrial pressure. Findings Left Ventricle: The left ventricular chamber size is normal. Mild to moderate concentric left ventricular hypertrophy is observed. Global left ventricular systolic function is moderate to severely decreased. The estimated ejection fraction is 25-30%. Abnormal left ventricular diastolic filling is observed, consistent with impaired relaxation. Right Ventricle: The right ventricular cavity size is normal. A pacemaker wire is visualized in the right ventricle. Right Atrium: The right atrial cavity size is normal. A pacemaker wire is visualized in the right atrium. No atrial septal defected is demonstrated by agitated saline contrast. Aortic Valve: The aortic valve leaflets are mildly thickened. There is no evidence of aortic regurgitation. Mitral Valve: The mitral valve leaflets are mildly thickened. There is mild mitral regurgitation. Tricuspid Valve: The tricuspid valve leaflets are normal. There is mild tricuspid regurgitation. The right ventricular systolic pressure is calculated at 43 mmHg. Pulmonic Valve: The pulmonic valve appears normal. There is trace pulmonic regurgitation. Pericardium: There is no pericardial effusion. Venous: The inferior vena cava appears normal in size. There is no change in the dimension of the inferior vena cava with respiration consistent with markedly increased right atrial pressure. Contrast: Intravenous agitated saline contrast was used to assess intracardiac shunting. Measurements Chambers 2D Name Value Normal Range IVSd (2D) 1.47 cm (0.6 - 1.1) LVPWd (2D) 1.34 cm (0.6 - 1.1) LVIDd (2D) 5.28 cm (3.7 - 5.6) LVIDs (2D) 4.53 cm (2 - 3.8) LV FS (2D) 14.2 % - EF Teichholz (2D) 30 % - Ao root diameter (2D) 3.15 cm (2 - 3.7) Volumes/Mass Name Value Normal Range LA ESV SP 4CH (A/L) 43.44 ml - LA ESV SP 2CH (A/L) 75.52 ml - LA ESV BP (A/L) 58.3 ml - LA ESV BP (A/L) index 29.9 ml/m2 - LA ESV SP 4CH (MOD) 38.82 ml - LA ESV SP 2CH (MOD) 70.93 ml - LA ESV BP (MOD) 53.15 ml - LA ESV BP (MOD) index 27.26 ml/m2 - Diastolic/Systolic Function Name Value Normal Range MV E-wave Vmax 0.46 m/sec - MV deceleration time 187.33 msec - MV A-wave Vmax 0.61 m/sec - MV E:A ratio 0.76 ratio - Aortic Valve Name Value Normal Range AV Vmax 0.77 m/sec - AV VTI 13.35 cm - AV peak gradient 2.39 mmHg - AV mean gradient 1.47 mmHg - LVOT diameter 2.31 cm - LVOT Vmax 0.66 m/sec - LVOT VTI 11.79 cm - LVOT peak gradient 1.75 mmHg - LVOT mean gradient 0.95 mmHg - SV LVOT 49.32 ml - CRIS (continuity Vmax) 3.57 cm2 - CRIS (continuity VTI) 3.69 cm2 - Mitral Valve Name Value Normal Range MR Vmax 3.43 m/sec - Tricuspid Valve Name Value Normal Range TR Vmax 2.95 m/sec - TR peak gradient 35 mmHg - RAP 8 mmHg - RVSP 43 mmHg - IVC diameter 1.85 cm (1.2 - 2.3) Pulmonic Valve/Qp:Qs Name Value Normal Range PV Vmax 0.54 m/sec - PV peak gradient 1.17 mmHg - MA end-diastolic Vmax 1.67 m/sec - PV acceleration time 95.15 msec - Capellan/IV: Voiding Method Toilet IV Catheter Type [Right INT / Saline Lock Antecubital] Active Medications - Current Medications Current Medications: Generic Name Dose Route Start Last Admin Trade Name Freq PRN Reason Stop Dose Admin Acetaminophen 650 mg 12/18/19 18:03 12/19/19 18:03 Tylenol PO 650 mg Q4H PRN Administration Pain, Mild (1-3) Aspirin 81 mg 12/19/19 10:00 12/19/19 09:55 Halfprin Ec PO 81 mg QDAY ESTRELLA Administration Atorvastatin Calcium 40 mg 12/18/19 22:00 12/19/19 23:46 Lipitor PO 40 mg QHS ESTRELLA Administration Bisacodyl 10 mg 12/18/19 18:03 Dulcolax MA QDAY PRN Constipation Furosemide 40 mg 12/21/19 10:00 Lasix IV QDAY ESTRELLA Ceftriaxone Sodium 2 gm in 100 mls @ 200 mls/hr 12/19/19 10:00 12/20/19 10:15 Rocephin/Ns 2 Gm/100 Ml IV 200 mls/hr Q24HR ESTRELLA Administration Protocol Lisinopril 10 mg 12/19/19 16:00 12/20/19 10:14 Zestril PO 10 mg QDAY ESTRELLA Administration Magnesium Hydroxide 30 ml 12/18/19 18:03 Milk Of Magnesia PO Q4H PRN Constipation Magnesium Oxide 400 mg 12/18/19 18:00 12/20/19 10:13 Mag-Ox PO 400 mg QDAY ESTRELLA Administration Metoclopramide HCl 10 mg 12/18/19 18:03 Reglan PO Q6H PRN Nausea And Vomiting Metoprolol Tartrate 50 mg 12/19/19 16:00 12/20/19 10:13 Metoprolol PO 50 mg BID ESTRELLA Administration Ondansetron HCl 4 mg 12/18/19 18:03 Zofran IV Q8H PRN Nausea And Vomiting Promethazine HCl 25 mg 12/18/19 18:03 Phenergan MA Q6H PRN Nausea And Vomiting Sodium Chloride 10 ml 12/18/19 18:03 Sodium Chloride Flush Syringe 10 Ml IV PRN PRN LINE FLUSH
[2019-12-20] MEDS: NICOTINE 14 MG/24 HR PATCH TD SCH (17:47)
--- NOTE | 2019-12-20 21:03 | Consultation ---
History of Present Illness Consult date: 12/20/19 Requesting physician: MANJIT GREENBERG Reason for consult: pneumonia History of present illness: 64 yo homeless and poor historian, admitted with increased SOB, cough with yellow sputum, and pneumonia on imaging. No fevers, chills, chest pain, hemoptysis. Admits to smoking cigarettes and cocaine. Active Medications Acetaminophen (Tylenol) 650 mg PO Q4H PRN PRN Reason: Pain, Mild (1-3) Last Admin: 12/19/19 18:03 Dose: 650 mg Documented by: Aspirin (Halfprin Ec) 81 mg PO QDAY [facility] Last Admin: 12/20/19 10:15 Dose: 81 mg Documented by: Atorvastatin Calcium (Lipitor) 40 mg PO QHS [facility] Last Admin: 12/19/19 23:46 Dose: 40 mg Documented by: Bisacodyl (Dulcolax) 10 mg [place] QDAY PRN PRN Reason: Constipation Furosemide (Lasix) 40 mg IV QDAY [facility] Ceftriaxone Sodium (Rocephin/Ns 2 Gm/100 Ml) 2 gm in 100 mls @ 200 mls/hr IV Q24HR [facility]; Protocol Last Infusion: 12/20/19 12:05 Dose: Infused Documented by: Lisinopril (Zestril) 10 mg PO QDAY [facility] Last Admin: 12/20/19 10:14 Dose: 10 mg Documented by: Magnesium Hydroxide (Milk Of Magnesia) 30 ml PO Q4H PRN PRN Reason: Constipation Magnesium Oxide (Mag-Ox) 400 mg PO QDAY [facility] Last Admin: 12/20/19 10:13 Dose: 400 mg Documented by: Metoclopramide HCl (Reglan) 10 mg PO Q6H PRN PRN Reason: Nausea And Vomiting Metoprolol Tartrate (Metoprolol) 50 mg PO BID [facility] Last Admin: 12/20/19 10:13 Dose: 50 mg Documented by: Nicotine (Habitrol) 14 mg TD QDAY [facility] Last Admin: 12/20/19 17:47 Dose: 14 mg Documented by: Ondansetron HCl (Zofran) 4 mg IV Q8H PRN PRN Reason: Nausea And Vomiting Promethazine HCl (Phenergan) 25 mg [place] Q6H PRN PRN Reason: Nausea And Vomiting Sodium Chloride (Sodium Chloride Flush Syringe 10 Ml) 10 ml IV PRN PRN PRN Reason: LINE FLUSH Past History Past Medical History: diabetes, heart failure, hypertension, stroke, other (ICMP, h/o [place], h/o CVA) Past Surgical History: Other (AICD) Social history: single, smoking, full code, other (polysubstance abuse, homelessness). denies: prescription drug abuse, IV drug use Family history: hypertension Medications and Allergies Allergies Allergy/AdvReac Type Severity Reaction Status Date / Time No Known Allergies Allergy Verified 12/18/19 13:35 Home Medications Medication Instructions Recorded Confirmed Last Taken Type Aspirin EC [Halfprin EC] 81 mg PO QDAY #30 tablet 06/13/14 12/20/19 Unknown Rx Metoprolol [Lopressor TAB] 12.5 mg PO BID #60 tablet 06/13/14 12/20/19 Unknown Rx Rosuvastatin (Nf) [Crestor] 20 mg PO QHS #30 tablet 06/13/14 12/20/19 Unknown Rx lisinopriL [Zestril TAB] 2.5 mg PO QDAY #30 tablet 06/13/14 12/20/19 Unknown Rx Active Meds: Active Medications Acetaminophen (Tylenol) 650 mg PO Q4H PRN PRN Reason: Pain, Mild (1-3) Last Admin: 12/19/19 18:03 Dose: 650 mg Documented by: Aspirin (Halfprin Ec) 81 mg PO QDAY [facility] Last Admin: 12/20/19 10:15 Dose: 81 mg Documented by: Atorvastatin Calcium (Lipitor) 40 mg PO QHS [facility] Last Admin: 12/19/19 23:46 Dose: 40 mg Documented by: Bisacodyl (Dulcolax) 10 mg [place] QDAY PRN PRN Reason: Constipation Furosemide (Lasix) 40 mg IV QDAY [facility] Ceftriaxone Sodium (Rocephin/Ns 2 Gm/100 Ml) 2 gm in 100 mls @ 200 mls/hr IV Q24HR [facility]; Protocol Last Infusion: 12/20/19 12:05 Dose: Infused Documented by: Lisinopril (Zestril) 10 mg PO QDAY [facility] Last Admin: 12/20/19 10:14 Dose: 10 mg Documented by: Magnesium Hydroxide (Milk Of Magnesia) 30 ml PO Q4H PRN PRN Reason: Constipation Magnesium Oxide (Mag-Ox) 400 mg PO QDAY [facility] Last Admin: 12/20/19 10:13 Dose: 400 mg Documented by: Metoclopramide HCl (Reglan) 10 mg PO Q6H PRN PRN Reason: Nausea And Vomiting Metoprolol Tartrate (Metoprolol) 50 mg PO BID [facility] Last Admin: 12/20/19 10:13 Dose: 50 mg Documented by: Nicotine (Habitrol) 14 mg TD QDAY [facility] Last Admin: 12/20/19 17:47 Dose: 14 mg Documented by: Ondansetron HCl (Zofran) 4 mg IV Q8H PRN PRN Reason: Nausea And Vomiting Promethazine HCl (Phenergan) 25 mg [place] Q6H PRN PRN Reason: Nausea And Vomiting Sodium Chloride (Sodium Chloride Flush Syringe 10 Ml) 10 ml IV PRN PRN PRN Reason: LINE FLUSH Review of Systems All systems: negative Physical Examination Vital signs: Vital Signs Temp Pulse Resp BP Pulse Ox 98.2 F 109 H 26 H 172/109 93 12/18/19 13:45 12/18/19 13:45 12/18/19 13:45 12/18/19 13:45 12/18/19 13:45 General appearance: no acute distress, alert, other (disheveled appearance) Eyes: non-icteric ENT: oropharynx moist Neck: supple Effort: normal Cardiovascular: regular rate and rhythm (no mrg) Gastrointestinal: normoactive bowel sounds, soft, non-tender, non-distended Integumentary: normal Extremities: no cyanosis, no edema, pink and warm Musculoskeletal: no deformities normal mental status, non-focal exam, pupils equal and round, CN II-XII normal mood appropriate, affect normal Results - Laboratory Findings CBC and BMP: 12/20/19 04:39 12/20/19 04:39 PT/INR, D-dimer PT 13.5 Sec. (12.2-14.9) 12/18/19 15:20 INR 1.02 (0.87-1.13) 12/18/19 15:20 D-Dimer 982.33 ng/mlDDU (0-234) H 12/18/19 15:20 Abnormal lab findings: Abnormal Labs 12/18/19 12/18/19 12/18/19 15:20 15:20 15:20 Hgb MCHC 31 L RDW 19.6 H [place] % (Auto) 8.7 H Lymph # Seg Neutrophils % 71.3 H D-Dimer 982.33 H Potassium Chloride Carbon Dioxide BUN 7 L Creatinine Glucose POC Glucose Magnesium 1.50 L Direct Bilirubin 0.4 H Alkaline Phosphatase 134 H Lactate Dehydrogenase Total Creatine Kinase 183 H CK-MB (CK-2) 8.6 H CK-MB (CK-2) Rel Index 4.6 H C-Reactive Protein NT-Pro-B Natriuret Pep 50420 H Albumin 3.6 L 12/18/19 12/19/19 12/19/19 15:20 05:15 05:15 Hgb MCHC RDW 19.0 H [place] % (Auto) 11.0 H Lymph # 1.0 L Seg Neutrophils % D-Dimer Potassium 3.3 L D Chloride Carbon Dioxide BUN 6 L Creatinine 0.7 L Glucose 66 L POC Glucose Magnesium Direct Bilirubin Alkaline Phosphatase Lactate Dehydrogenase 410 H Total Creatine Kinase CK-MB (CK-2) CK-MB (CK-2) Rel Index C-Reactive Protein 1.50 H NT-Pro-B Natriuret Pep Albumin 12/19/19 12/19/19 12/19/19 05:39 08:06 12:00 Hgb MCHC RDW [place] % (Auto) Lymph # Seg Neutrophils % D-Dimer Potassium Chloride Carbon Dioxide BUN Creatinine Glucose POC Glucose 61 L 153 H Magnesium 1.50 L Direct Bilirubin Alkaline Phosphatase Lactate Dehydrogenase Total Creatine Kinase CK-MB (CK-2) CK-MB (CK-2) Rel Index C-Reactive Protein NT-Pro-B Natriuret Pep Albumin 12/19/19 12/20/19 12/20/19 21:52 04:39 04:39 Hgb 11.5 L MCHC RDW 18.5 H [place] % (Auto) 9.9 H Lymph # 1.1 L Seg Neutrophils % D-Dimer Potassium 3.5 L Chloride 95.5 L Carbon Dioxide 35 H BUN Creatinine Glucose 140 H POC Glucose 190 H Magnesium Direct Bilirubin Alkaline Phosphatase Lactate Dehydrogenase Total Creatine Kinase CK-MB (CK-2) CK-MB (CK-2) Rel Index C-Reactive Protein NT-Pro-B Natriuret Pep Albumin 12/20/19 12/20/19 12/20/19 07:55 08:05 11:36 Hgb MCHC RDW [place] % (Auto) Lymph # Seg Neutrophils % D-Dimer Potassium Chloride Carbon Dioxide BUN Creatinine Glucose POC Glucose 122 H 140 H Magnesium 1.50 L Direct Bilirubin Alkaline Phosphatase Lactate Dehydrogenase Total Creatine Kinase CK-MB (CK-2) CK-MB (CK-2) Rel Index C-Reactive Protein NT-Pro-B Natriuret Pep Albumin 12/20/19 16:51 Hgb MCHC RDW [place] % (Auto) Lymph # Seg Neutrophils % D-Dimer Potassium Chloride Carbon Dioxide BUN Creatinine Glucose POC Glucose 135 H Magnesium Direct Bilirubin Alkaline Phosphatase Lactate Dehydrogenase Total Creatine Kinase CK-MB (CK-2) CK-MB (CK-2) Rel Index C-Reactive Protein NT-Pro-B Natriuret Pep Albumin - Diagnostic Findings Chest x-ray: report reviewed, image reviewed CT scan - chest: report reviewed, image reviewed Assessment and Plan Imp: 1. Pneumonia 2. Pulm nodules 3. Chronic nicotine dependence, cigarettes 4. Cocaine abuse 5. Dilated CMP 6. NSVT 7. Pulm HTN Rec: 1. Complete ~ 7-10 days of empiric ABX; avoid QT-prolonging agents 2. F/u CT chest in 3 months to ensure resolution of pneumonia and stability or improvement of the nodule; d/w patient who expresses understanding of the need to f/u for this 3. D/c smoking/cocaine, etc. 4. Replete K and mag 5. F/u cardiology recs 6. Further plans pending clinical course Plan of care reviewed with patient, he understands/agrees Thanks for the consult. Will follow w/ you.
[2019-12-20] MEDS: ACETAMINOPHEN 325 MG TAB PO PRN (22:58)
[2019-12-21] MEDS: ACETAMINOPHEN 325 MG TAB PO PRN (05:35)
--- NOTE | 2019-12-21 09:55 | Progress Note ---
Assessment and Plan Assessment and plan: CVA. Continue CVA protocol. Neurology consulted. Acute hypoxemic respiratory failure. Etiology secondary to community-acquired pneumonia and systolic heart failure. CTA of chest negative. Pneumonia. Continue IV antibiotics and follow-up serial chest x-ray. CT of the chest reveals a lingular infiltrate. ID consulted COVID-19 test negative12/19/2019 Acute systolic heart failure. Beta natruretic peptide greater than 10,000. Consulted cardiology. Start Lasix 40 mg IV daily. Ischemic cardiomyopathy. History of AICD. Tobacco abuse EtOH abuse. Cocaine abuse. Patient with UDS positive for cocaine. 12/20/2019. Echocardiogram revealed EF of 25 to 30%. Continue aspirin and Lipitor and afterload reduction with Zestril. Continue ceftriaxone. Patient also with asymptomatic nonsustained V. tach--continue metoprolol 50 mg twice daily. Cardiology and pulmonary following. Inflammatory markers within normal limits. PT/OT evaluation. Await PT recommendations for disposition. 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 12/21/2019. Continue IV antibiotics for pneumonia. Pulmonary recommends follow- up CT chest in 3 months to ensure resolution of pneumonia and stability or improvement of the nodule. Continue beta-casandra for nonsustained V. tach. Continue aspirin, Lipitor and Zestril. Await physical therapy evaluation for disposition. History Interval history: No new issues overnight. Hospitalist Physical - Constitutional Vitals: Temp Pulse Resp BP Pulse Ox 98.1 F 79 20 136/86 100 12/21/19 06:22 12/21/19 06:22 12/21/19 06:22 12/21/19 06:22 12/21/19 06:22 General appearance: Present: no acute distress - EENT Eyes: Present: PERRL, EOM intact ENT: hearing intact, clear oral mucosa, dentition normal - Neck Neck: Present: supple, normal ROM - Respiratory Respiratory effort: normal Respiratory: bilateral: CTA - Cardiovascular Rhythm: regular Heart Sounds: Present: S1 & S2. Absent: gallop, rub - Extremities Extremities: no ischemia, No edema, Full ROM - Abdominal General gastrointestinal: soft, non-tender, non-distended, normal bowel sounds - Integumentary Integumentary: Present: clear, warm, dry - Neurologic Neurologic: CNII-XII intact, moves all extremities HEART Score - HEART Score Troponin: Troponin T 0.014 ng/mL (0.00-0.029) 12/18/19 15:20 Results - Labs CBC & Chem 7: 12/20/19 04:39 12/20/19 04:39 Labs: Laboratory Last Values WBC 6.3 K/mm3 (4.5-11.0) 12/20/19 04:39 RBC 3.93 M/mm3 (3.65-5.03) 12/20/19 04:39 Hgb 11.5 gm/dl (11.8-15.2) L 12/20/19 04:39 Hct 36.4 % (35.5-45.6) 12/20/19 04:39 MCV 93 fl (84-94) 12/20/19 04:39 MCH 29 pg (28-32) 12/20/19 04:39 MCHC 32 % (32-34) 12/20/19 04:39 RDW 18.5 % (13.2-15.2) H 12/20/19 04:39 Plt Count 161 K/mm3 (140-440) 12/20/19 04:39 Lymph % (Auto) 17.2 % (13.4-35.0) 12/20/19 04:39 [place] % (Auto) 9.9 % (0.0-7.3) H 12/20/19 04:39 Eos % (Auto) 4.1 % (0.0-4.3) 12/20/19 04:39 Baso % (Auto) 0.5 % (0.0-1.8) 12/20/19 04:39 Lymph # 1.1 K/mm3 (1.2-5.4) L 12/20/19 04:39 [place] # 0.6 K/mm3 (0.0-0.8) 12/20/19 04:39 Eos # 0.3 K/mm3 (0.0-0.4) 12/20/19 04:39 Baso # 0.0 K/mm3 (0.0-0.1) 12/20/19 04:39 Seg Neutrophils % 68.3 % (40.0-70.0) 12/20/19 04:39 Seg Neutrophils # 4.3 K/mm3 (1.8-7.7) 12/20/19 04:39 PT 13.5 Sec. (12.2-14.9) 12/18/19 15:20 INR 1.02 (0.87-1.13) 12/18/19 15:20 APTT 25.9 Sec. (24.2-36.6) 12/18/19 15:20 D-Dimer 982.33 ng/mlDDU (0-234) H 12/18/19 15:20 Sodium 142 mmol/L (137-145) 12/20/19 04:39 Potassium 3.5 mmol/L (3.6-5.0) L 12/20/19 04:39 Chloride 95.5 mmol/L (98-107) L 12/20/19 04:39 Carbon Dioxide 35 mmol/L (22-30) H 12/20/19 04:39 Anion Gap 15 mmol/L 12/20/19 04:39 BUN 12 mg/dL (9-20) 12/20/19 04:39 Creatinine 0.9 mg/dL (0.8-1.5) 12/20/19 04:39 Estimated GFR > 60 ml/min 12/20/19 04:39 BUN/Creatinine Ratio 13 % 12/20/19 04:39 Glucose 140 mg/dL (75-100) H 12/20/19 04:39 POC Glucose 162 (70-105) H 12/21/19 08:05 Lactic Acid 1.60 mmol/L (0.7-2.0) 12/18/19 17:05 Calcium 8.5 mg/dL (8.4-10.2) 12/20/19 04:39 Magnesium 1.50 mg/dL (1.7-2.3) L 12/20/19 07:55 Ferritin 19.7 ng/mL (13.0-400.0) 12/18/19 15:20 Total Bilirubin 0.80 mg/dL (0.1-1.2) 12/18/19 15:20 Direct Bilirubin 0.4 mg/dL (0-0.2) H 12/18/19 15:20 Indirect Bilirubin 0.4 mg/dL 12/18/19 15:20 AST 39 units/L (5-40) 12/18/19 15:20 ALT 23 units/L (7-56) 12/18/19 15:20 Alkaline Phosphatase 134 units/L (35-129) H 12/18/19 15:20 Lactate Dehydrogenase 410 units/L (91-180) H 12/18/19 15:20 Total Creatine Kinase 183 units/L (55-170) H 12/18/19 15:20 CK-MB (CK-2) 8.6 ng/mL (0.0-4.0) H 12/18/19 15:20 CK-MB (CK-2) Rel Index 4.6 (0-4) H 12/18/19 15:20 Troponin T 0.014 ng/mL (0.00-0.029) 12/18/19 15:20 C-Reactive Protein 1.50 mg/dL (0.00-1.30) H 12/18/19 15:20 NT-Pro-B Natriuret Pep 06854 pg/mL (0-900) H 12/18/19 15:20 Total Protein 7.8 g/dL (6.3-8.2) 12/18/19 15:20 Albumin 3.6 g/dL (3.9-5) L 12/18/19 15:20 Albumin/Globulin Ratio 0.9 % 12/18/19 15:20 Procalcitonin < 0.05 ng/mL (<0.15) 12/18/19 15:20 Urine Color Colorless (Yellow) 12/18/19 14:55 Urine Turbidity Clear (Clear) 12/18/19 14:55 Urine pH 6.0 (5.0-7.0) 12/18/19 14:55 Ur Specific [place] 1.004 (1.003-1.030) 12/18/19 14:55 Urine Protein <15 mg/dl mg/dL (Negative) 12/18/19 14:55 Urine Glucose (UA) Neg mg/dL (Negative) 12/18/19 14:55 Urine Ketones Neg mg/dL (Negative) 12/18/19 14:55 Urine Blood Sm (Negative) 12/18/19 14:55 Urine Nitrite Neg (Negative) 12/18/19 14:55 Urine Bilirubin Neg (Negative) 12/18/19 14:55 Urine Urobilinogen < 2.0 mg/dL (<2.0) 12/18/19 14:55 Ur Leukocyte Esterase Neg (Negative) 12/18/19 14:55 Urine WBC (Auto) < 1.0 /HPF (0.0-6.0) 12/18/19 14:55 Urine RBC (Auto) 2.0 /HPF (0.0-6.0) 12/18/19 14:55 Urine Opiates Screen Presumptive negative 12/18/19 14:55 Urine Methadone Screen Presumptive negative 12/18/19 14:55 Ur Barbiturates Screen Presumptive negative 12/18/19 14:55 Ur Phencyclidine Scrn Presumptive negative 12/18/19 14:55 Ur Amphetamines Screen Presumptive negative 12/18/19 14:55 U Benzodiazepines Scrn Presumptive negative 12/18/19 14:55 Urine Cocaine Screen Presumptive positive 12/18/19 14:55 U Marijuana (THC) Screen Presumptive negative 12/18/19 14:55 Drugs of Abuse Note Disclamer 12/18/19 14:55 Plasma/Serum Alcohol < 0.01 % (0-0.07) 12/18/19 15:20 Coronavirus (PCR) Negative (Negative) 12/19/19 07:25 Microbiology: Microbiology 12/18/19 17:05 Peripheral/Venous Blood Culture - Preliminary NO GROWTH AFTER 48 HOURS 12/18/19 17:05 Peripheral/Venous Blood Culture - Preliminary NO GROWTH AFTER 48 HOURS - Diagnostic Impressions Diagnostic Impressions: Echocardiogram 12/18/19 18:04 Transthoracic Echocardiogram Indication: Stroke BP: 115/78 HR: 87 Conclusions *Global left ventricular systolic function is moderate to severely decreased. *The estimated ejection fraction is 25-30%. *Mild to moderate concentric left ventricular hypertrophy is observed. *Abnormal left ventricular diastolic filling is observed, consistent with impaired relaxation. *A pacemaker wire is visualized in the right ventricle. *No atrial septal defected is demonstrated by agitated saline contrast. *There is no evidence of aortic regurgitation. *There is mild mitral regurgitation. *There is mild tricuspid regurgitation. *The right ventricular systolic pressure is calculated at 43 mmHg. *There is trace pulmonic regurgitation. *There is no change in the dimension of the inferior vena cava with respiration consistent with markedly increased right atrial pressure. Findings Left Ventricle: The left ventricular chamber size is normal. Mild to moderate concentric left ventricular hypertrophy is observed. Global left ventricular systolic function is moderate to severely decreased. The estimated ejection fraction is 25-30%. Abnormal left ventricular diastolic filling is observed, consistent with impaired relaxation. Right Ventricle: The right ventricular cavity size is normal. A pacemaker wire is visualized in the right ventricle. Right Atrium: The right atrial cavity size is normal. A pacemaker wire is visualized in the right atrium. No atrial septal defected is demonstrated by agitated saline contrast. Aortic Valve: The aortic valve leaflets are mildly thickened. There is no evidence of aortic regurgitation. Mitral Valve: The mitral valve leaflets are mildly thickened. There is mild mitral regurgitation. Tricuspid Valve: The tricuspid valve leaflets are normal. There is mild tricuspid regurgitation. The right ventricular systolic pressure is calculated at 43 mmHg. Pulmonic Valve: The pulmonic valve appears normal. There is trace pulmonic regurgitation. Pericardium: There is no pericardial effusion. Venous: The inferior vena cava appears normal in size. There is no change in the dimension of the inferior vena cava with respiration consistent with markedly increased right atrial pressure. Contrast: Intravenous agitated saline contrast was used to assess intracardiac shunting. Measurements Chambers 2D Name Value Normal Range IVSd (2D) 1.47 cm (0.6 - 1.1) LVPWd (2D) 1.34 cm (0.6 - 1.1) LVIDd (2D) 5.28 cm (3.7 - 5.6) LVIDs (2D) 4.53 cm (2 - 3.8) LV FS (2D) 14.2 % - EF Teichholz (2D) 30 % - Ao root diameter (2D) 3.15 cm (2 - 3.7) Volumes/Mass Name Value Normal Range LA ESV SP 4CH (A/L) 43.44 ml - LA ESV SP 2CH (A/L) 75.52 ml - LA ESV BP (A/L) 58.3 ml - LA ESV BP (A/L) index 29.9 ml/m2 - LA ESV SP 4CH (MOD) 38.82 ml - LA ESV SP 2CH (MOD) 70.93 ml - LA ESV BP (MOD) 53.15 ml - LA ESV BP (MOD) index 27.26 ml/m2 - Diastolic/Systolic Function Name Value Normal Range MV E-wave Vmax 0.46 m/sec - MV deceleration time 187.33 msec - MV A-wave Vmax 0.61 m/sec - MV E:A ratio 0.76 ratio - Aortic Valve Name Value Normal Range AV Vmax 0.77 m/sec - AV VTI 13.35 cm - AV peak gradient 2.39 mmHg - AV mean gradient 1.47 mmHg - LVOT diameter 2.31 cm - LVOT Vmax 0.66 m/sec - LVOT VTI 11.79 cm - LVOT peak gradient 1.75 mmHg - LVOT mean gradient 0.95 mmHg - SV LVOT 49.32 ml - CRIS (continuity Vmax) 3.57 cm2 - CRIS (continuity VTI) 3.69 cm2 - Mitral Valve Name Value Normal Range MR Vmax 3.43 m/sec - Tricuspid Valve Name Value Normal Range TR Vmax 2.95 m/sec - TR peak gradient 35 mmHg - RAP 8 mmHg - RVSP 43 mmHg - IVC diameter 1.85 cm (1.2 - 2.3) Pulmonic Valve/Qp:Qs Name Value Normal Range PV Vmax 0.54 m/sec - PV peak gradient 1.17 mmHg - [place] end-diastolic Vmax 1.67 m/sec - PV acceleration time 95.15 msec - [place]/IV: Voiding Method Toilet IV Catheter Type [Right INT / Saline Lock Antecubital] Active Medications - Current Medications Current Medications: Generic Name Dose Route Start Last Admin Trade Name Freq PRN Reason Stop Dose Admin Acetaminophen 650 mg 12/18/19 18:03 12/21/19 05:35 Tylenol PO 650 mg Q4H PRN Administration Pain, Mild (1-3) Aspirin 81 mg 12/19/19 10:00 12/20/19 10:15 Halfprin Ec PO 81 mg QDAY ESTRELLA Administration Atorvastatin Calcium 40 mg 12/18/19 22:00 12/20/19 21:09 Lipitor PO 40 mg QHS ESTRELLA Administration Bisacodyl 10 mg 12/18/19 18:03 Dulcolax [place] QDAY PRN Constipation Furosemide 40 mg 12/21/19 10:00 Lasix IV QDAY ESTRELLA Ceftriaxone Sodium 2 gm in 100 mls @ 200 mls/hr 12/19/19 10:00 12/20/19 12:05 Rocephin/Ns 2 Gm/100 Ml IV Infused Q24HR ESTRELLA Infusion Protocol Lisinopril 10 mg 12/19/19 16:00 12/20/19 10:14 Zestril PO 10 mg QDAY ESTRELLA Administration Magnesium Hydroxide 30 ml 12/18/19 18:03 Milk Of Magnesia PO Q4H PRN Constipation Magnesium Oxide 400 mg 12/18/19 18:00 12/20/19 10:13 Mag-Ox PO 400 mg QDAY ESTRELLA Administration Metoclopramide HCl 10 mg 12/18/19 18:03 Reglan PO Q6H PRN Nausea And Vomiting Metoprolol Tartrate 50 mg 12/19/19 16:00 12/20/19 21:10 Metoprolol PO 50 mg BID ESTRELLA Administration Nicotine 14 mg 12/20/19 18:00 12/20/19 17:47 Habitrol TD 14 mg QDAY ESTRELLA Administration Ondansetron HCl 4 mg 12/18/19 18:03 Zofran IV Q8H PRN Nausea And Vomiting Promethazine HCl 25 mg 12/18/19 18:03 Phenergan [place] Q6H PRN Nausea And Vomiting Sodium Chloride 10 ml 12/18/19 18:03 Sodium Chloride Flush Syringe 10 Ml IV PRN PRN LINE FLUSH
[2019-12-21] MEDS: NICOTINE 14 MG/24 HR PATCH TD SCH (10:41)
[2019-12-21] MEDS: ASPIRIN EC 81 MG TAB PO SCH (10:41)
[2019-12-21] MEDS: FUROSEMIDE 40 MG/4 ML INJ IV SCH (10:42)
[2019-12-21] MEDS: MAGNESIUM OXIDE 400 MG TAB PO SCH (10:43)
[2019-12-21] MEDS: METOPROLOL TARTRATE 50 MG TAB PO SCH ×2 (10:43→21:31)
[2019-12-21] MEDS: LISINOPRIL 10 MG TAB PO SCH (10:44)
[2019-12-21] MEDS: cefTRIAXone/NS 2 GM/100 ML 2 GM/100 ML BAG IV SCH (10:44)
--- NOTE | 2019-12-21 11:54 | Progress Note ---
Assessment and Plan Cultures: Blood cultures 12/18/2019 no growth today 12/19/2019 coronavirus PCR: Negative Assessment: 64 years old male with history of hypertension, CVA, CAD/[place], CHF status post AICD placement, diabetes, polysubstance abuse, homelessness, admitted on 12/18/2019 due to low 24-hour history of acute left hand weakness and slurred speech associated with shortness of breath, productive cough with yellow sputum and sweats: #Possible lingular pneumonia: Likely bacterial, COVID-19 test negative. Infl ammatory markers including ferritin, S CRP within normal limits. D-dimer mildly elevated. No fever. no leucocytosis. #Polysubstance abuse: Cocaine positive #Homelessness #Possible CVA, per primary team Recommendations: abx switched to PO Ceftin 500 mg BID + doxycycline 100 mg BID x 5 days isolation can be discontinued COVID-19 PCR is negative Jatinder Blanc MD, FACP [facility] ([facility] C: [phone] O: [phone] F: [phone] Subjective Date of service: 12/21/19 Interval history: Patient with no fever, no leukocytosis. Feels his breathing is slowly improving. Objective - Exam Narrative Exam: Physical Exam: Constitutional: Alert, cooperative. No acute distress Head, Ears, Nose: Normocephalic, atraumatic. External ears, nose normal Eyes: Conjunctivae/corneas clear. No icterus. No ptosis. Neck: Supple, no meningeal signs Cardiovascular: S1, S2 normal. Respiratory: b/l wheeze GI: Soft, non-tender; bowel sounds normal. No peritoneal signs Musculoskeletal: No pedal edema, no cyanosis. Skin: No rash or abscess Hem/Lymphatic: No palpable cervical or supraclavicular nodes. No lymphangitis Psych: Mood ok. Affect normal Neurological: Awake, alert, oriented. No gross abnormality - Constitutional Vitals: Vital Signs Temp Pulse Resp BP Pulse Ox 98.1 F 82 20 138/86 100 12/21/19 06:22 12/21/19 10:43 12/21/19 06:22 12/21/19 10:43 12/21/19 06:22 Temperature -Last 24 Hours Temperature 98.1 F Temperature 98.7 F Temperature 99.0 F - Labs CBC & Chem 7: 05/30/20 04:39 12/20/19 04:39 Labs: Abnormal lab results 12/20/19 12/20/19 12/20/19 Range/Units 11:36 16:51 22:20 POC Glucose 140 H 135 H 188 H (70-105) 12/21/19 Range/Units 08:05 POC Glucose 162 H (70-105)
--- NOTE | 2019-12-21 12:40 | Progress Note ---
Assessment and Plan Consult date: 12/19/19 Requesting physician: MANJIT GREENBERG Consult reason: congestive heart failure History of present illness: Pt is a 64 y.o. male with a past medical hx of ICMP s/p AICD (EF 20-25% in 2010), prior [place], prior CVA, chronic HFrEF, HTN, DM2, and polysubstance abuse (including tobacco, etoh, cocaine). He has been seen by our practice during previous hospitalizations. Pt reports he has been homeless for approximately 3 months and is typically followed at [place]. He presented to [facility] c/o slurred speech and L hand weakness that began last night. Pt also endorses acute SOB and productive cough. He denies chest pain, palpitations, diaphoresis, dizziness, lightheadedness, syncope, claudication, N/V, and fever/chills. Pt admits non- compliance with cardiac regimen and follow-up appts. BNP 76409. CXR reveals HEMA opacity. Chest CTA negative for PE, reveals LLL pulm nodule. 12/20/2019>Patient denies any chest pain,no significant SOB,echo showed EF 25- 30%,continue diuretic,will decrease Furosemide to once a day.Monitor on telemetry.Having asymptomatic non sustained VT.Labs were reviewed. 12/21/2019>cardiac status remains unchanged,being treated for lingular bacterial pneumonia.continue present rx. - Patient Problems (1) Acute on chronic HFrEF (heart failure with reduced ejection fraction) Current Visit: Yes Status: Acute (2) Cardiomyopathy Current Visit: Yes Status: Acute Qualifiers: Cardiomyopathy type: unspecified Qualified Code(s): I42.9 - Cardiomyopathy, unspecified (3) Person under investigation for COVID-19 Current Visit: Yes Status: Acute (4) Pneumonia Current Visit: Yes Status: Acute Qualifiers: Laterality: left Lung location: upper lobe of lung (5) Automatic implantable cardioverter-defibrillator in situ Current Visit: Yes Status: Chronic (6) Cocaine abuse Current Visit: Yes Status: Chronic (7) Diabetes Current Visit: Yes Status: Chronic Qualifiers: Diabetes mellitus type: type 2 (8) ETOH abuse Current Visit: Yes Status: Chronic (9) Hypertension Current Visit: Yes Status: Chronic Qualifiers: Hypertension type: essential hypertension Qualified Code(s): I10 - Essential (primary) hypertension Subjective Date of service: 12/21/19 Interval history: Patient is comfortable, had one short episode of non sustained VT,7 beat according to RN.Asymptomatic. 12/21/2019>Telemetry showing occassional non sustained VT,4 beat last night.Otherwise no cardiac symptoms,c/o numbnessinboth legs of 3 months duration in addition to left upper extremity weakness. Objective Vital Signs Temp Pulse Resp Resp BP Pulse Ox 12/21/19 10:43 82 138/86 12/21/19 06:22 98.1 F 79 20 136/86 100 12/21/19 05:35 18 12/20/19 22:58 18 12/20/19 22:11 98.7 F 90 20 129/93 90 12/20/19 22:00 18 12/20/19 21:10 88 154/81 12/20/19 16:40 99.0 F 85 18 147/90 93 - Physical Examination HEENT: Positive: EOMI, Normocephaly, Mucus Membranes Moist Neck: Positive: neck supple, trachea midline. Negative: JVD/HJR Cardiac: Positive: Reg Rate and Rhythm Lungs: Positive: Decreased Breath Sounds Neuro: Positive: Grossly Intact Abdomen: Positive: Soft, Active Bowel Sounds. Negative: Tender Skin: Negative: Rash, Wound Musculoskeletal: No Pain, Normal Range of Motion Extremities: Present: upper extr. pulses, lower extr. pulses, +2 Edema (BLE) - Imaging and Cardiology EKG: report reviewed, image reviewed Echo: pending, other (12/19/2019>LVEF 25-30%,RVSP 43 mm hg.) - EKG Sinus rhythms and dysrhythmias: sinus rhythm Chamber hypertrophy or enlargement: left atrial enlargement
[2019-12-21] MEDS: DOXYCYCLINE 100 MG CAP PO SCH ×2 (14:35→21:31)
--- NOTE | 2019-12-21 20:09 | Progress Note ---
Assessment and Plan Imp: 1. Pneumonia 2. Pulm nodules 3. Chronic nicotine dependence, cigarettes 4. Cocaine abuse 5. Dilated CMP 6. NSVT 7. Pulm HTN Rec: 1. Complete ~ 7-10 days of empiric ABX per ID recs; avoid QT-prolonging agents 2. F/u CT chest in 3 months to ensure resolution of pneumonia and stability or improvement of the nodule; d/w patient who expresses understanding of the need to f/u for this 3. D/c smoking/cocaine, etc. 4. Replete K and mag as needed 5. F/u cardiology recs 6. Further plans pending clinical course Plan of care reviewed with patient, he understands/agrees Subjective Date of service: 12/21/19 Principal diagnosis: Pneumonia Interval history: No events. LE edema, SOB, and cough better. On RA. Active Medications Acetaminophen (Tylenol) 650 mg PO Q4H PRN PRN Reason: Pain, Mild (1-3) Last Admin: 12/21/19 05:35 Dose: 650 mg Documented by: Aspirin (Halfprin Ec) 81 mg PO QDAY [facility] Last Admin: 12/21/19 10:41 Dose: 81 mg Documented by: Atorvastatin Calcium (Lipitor) 40 mg PO QHS [facility] Last Admin: 12/20/19 21:09 Dose: 40 mg Documented by: Bisacodyl (Dulcolax) 10 mg SD QDAY PRN PRN Reason: Constipation Cefuroxime Axetil (Ceftin) 500 mg PO Q12HR [facility] Stop: 12/26/19 12:29 Last Admin: 12/21/19 14:35 Dose: 500 mg Documented by: Doxycycline Hyclate (Vibramycin) 100 mg PO BID [facility] Stop: 12/26/19 12:29 Last Admin: 12/21/19 14:35 Dose: 100 mg Documented by: Furosemide (Lasix) 40 mg IV QDAY [facility] Last Admin: 12/21/19 10:42 Dose: 40 mg Documented by: Lisinopril (Zestril) 10 mg PO QDAY [facility] Last Admin: 12/21/19 10:44 Dose: 10 mg Documented by: Magnesium Hydroxide (Milk Of Magnesia) 30 ml PO Q4H PRN PRN Reason: Constipation Magnesium Oxide (Mag-Ox) 400 mg PO QDAY [facility] Last Admin: 12/21/19 10:43 Dose: 400 mg Documented by: Metoclopramide HCl (Reglan) 10 mg PO Q6H PRN PRN Reason: Nausea And Vomiting Metoprolol Tartrate (Metoprolol) 50 mg PO BID [facility] Last Admin: 12/21/19 10:43 Dose: 50 mg Documented by: Nicotine (Habitrol) 14 mg TD QDAY [facility] Last Admin: 12/21/19 10:41 Dose: 14 mg Documented by: Ondansetron HCl (Zofran) 4 mg IV Q8H PRN PRN Reason: Nausea And Vomiting Promethazine HCl (Phenergan) 25 mg SD Q6H PRN PRN Reason: Nausea And Vomiting Sodium Chloride (Sodium Chloride Flush Syringe 10 Ml) 10 ml IV PRN PRN PRN Reason: LINE FLUSH Objective Vital Signs - 12hr 12/21/19 12/21/19 10:43 15:26 Temperature 99.0 F Pulse Rate 82 88 Respiratory 16 Rate Blood Pressure 138/86 138/93 O2 Sat by Pulse 94 Oximetry Constitutional: no acute distress, alert, other (disheveled appearance) Eyes: non-icteric ENT: oropharynx moist Neck: supple Effort: normal Cardiovascular: regular rate and rhythm (no mrg) Gastrointestinal: normoactive bowel sounds, soft, non-tender, non-distended Integumentary: normal Extremities: no cyanosis, no edema, pink and warm Neurologic: normal mental status, non-focal exam, pupils equal and round, CN II- XII normal Psychiatric: mood appropriate, affect normal CBC and BMP: 12/20/19 04:39 12/20/19 04:39 ABG, PT/INR, D-dimer: PT/INR, D-dimer PT 13.5 Sec. (12.2-14.9) 12/18/19 15:20 INR 1.02 (0.87-1.13) 12/18/19 15:20 D-Dimer 982.33 ng/mlDDU (0-234) H 12/18/19 15:20 Abnormal lab findings: Abnormal Labs 12/18/19 12/18/19 12/18/19 15:20 15:20 15:20 Hgb MCHC 31 L RDW 19.6 H [place] % (Auto) 8.7 H Lymph # Seg Neutrophils % 71.3 H D-Dimer 982.33 H Potassium Chloride Carbon Dioxide BUN 7 L Creatinine Glucose POC Glucose Magnesium 1.50 L Direct Bilirubin 0.4 H Alkaline Phosphatase 134 H Lactate Dehydrogenase Total Creatine Kinase 183 H CK-MB (CK-2) 8.6 H CK-MB (CK-2) Rel Index 4.6 H C-Reactive Protein NT-Pro-B Natriuret Pep 61649 H Albumin 3.6 L 12/18/19 12/19/19 12/19/19 15:20 05:15 05:15 Hgb MCHC RDW 19.0 H [place] % (Auto) 11.0 H Lymph # 1.0 L Seg Neutrophils % D-Dimer Potassium 3.3 L D Chloride Carbon Dioxide BUN 6 L Creatinine 0.7 L Glucose 66 L POC Glucose Magnesium Direct Bilirubin Alkaline Phosphatase Lactate Dehydrogenase 410 H Total Creatine Kinase CK-MB (CK-2) CK-MB (CK-2) Rel Index C-Reactive Protein 1.50 H NT-Pro-B Natriuret Pep Albumin 12/19/19 12/19/19 12/19/19 05:39 08:06 12:00 Hgb MCHC RDW [place] % (Auto) Lymph # Seg Neutrophils % D-Dimer Potassium Chloride Carbon Dioxide BUN Creatinine Glucose POC Glucose 61 L 153 H Magnesium 1.50 L Direct Bilirubin Alkaline Phosphatase Lactate Dehydrogenase Total Creatine Kinase CK-MB (CK-2) CK-MB (CK-2) Rel Index C-Reactive Protein NT-Pro-B Natriuret Pep Albumin 12/19/19 12/20/19 12/20/19 21:52 04:39 04:39 Hgb 11.5 L MCHC RDW 18.5 H [place] % (Auto) 9.9 H Lymph # 1.1 L Seg Neutrophils % D-Dimer Potassium 3.5 L Chloride 95.5 L Carbon Dioxide 35 H BUN Creatinine Glucose 140 H POC Glucose 190 H Magnesium Direct Bilirubin Alkaline Phosphatase Lactate Dehydrogenase Total Creatine Kinase CK-MB (CK-2) CK-MB (CK-2) Rel Index C-Reactive Protein NT-Pro-B Natriuret Pep Albumin 12/20/19 12/20/19 12/20/19 07:55 08:05 11:36 Hgb MCHC RDW [place] % (Auto) Lymph # Seg Neutrophils % D-Dimer Potassium Chloride Carbon Dioxide BUN Creatinine Glucose POC Glucose 122 H 140 H Magnesium 1.50 L Direct Bilirubin Alkaline Phosphatase Lactate Dehydrogenase Total Creatine Kinase CK-MB (CK-2) CK-MB (CK-2) Rel Index C-Reactive Protein NT-Pro-B Natriuret Pep Albumin 12/20/19 12/20/19 12/21/19 16:51 22:20 08:05 Hgb MCHC RDW [place] % (Auto) Lymph # Seg Neutrophils % D-Dimer Potassium Chloride Carbon Dioxide BUN Creatinine Glucose POC Glucose 135 H 188 H 162 H Magnesium Direct Bilirubin Alkaline Phosphatase Lactate Dehydrogenase Total Creatine Kinase CK-MB (CK-2) CK-MB (CK-2) Rel Index C-Reactive Protein NT-Pro-B Natriuret Pep Albumin Chest x-ray: report reviewed, image reviewed CT scan - chest: report reviewed, image reviewed
[2019-12-22] MEDS: ACETAMINOPHEN 325 MG TAB PO PRN ×2 (04:01→23:12)
[2019-12-22 06:26] LABS: Basophils # (Auto) 0.1 K/mm3 (0.0-0.1); Basophils % (Auto) 0.9 % (0.0-1.8); Eosinophils # (Auto) 0.3 K/mm3 (0.0-0.4); Eosinophils % (Auto) 5.3 % (0.0-4.3); Hemoglobin 10.8 gm/dl (11.8-15.2); Lymphocytes # (Auto) 1.4 K/mm3 (1.2-5.4); Lymphocytes % (Auto) 22.1 % (13.4-35.0); Mean Corpuscular HGB Conc 32 % (32-34); Mean Corpuscular Volume 92 fl (84-94); Monocytes # (Auto) 0.9 K/mm3 (0.0-0.8); Monocytes % (Auto) 14.4 % (0.0-7.3); Red Cell Distribution Width 18.3 % (13.2-15.2)
[2019-12-22 06:40] LABS: BUN/Creatinine Ratio 18; Blood Urea Nitrogen 14 mg/dL (9-20); Calcium 8.6 mg/dL (8.4-10.2)
[2019-12-22 06:52] LABS: Platelet Count 158 K/mm3 (140-440)
--- NOTE | 2019-12-22 09:11 | Progress Note ---
Assessment and Plan 64 y/o male with pneumonia 1. PO abx at recs of ID 2. Wean FiO2 to off as tolerated 3. OOB to chair and ambulate Subjective Date of service: 12/22/19 Principal diagnosis: Pneumonia Interval history: No acute events. Objective Vital Signs - 12hr 12/21/19 12/22/19 22:38 05:26 Temperature 98.9 F 98.0 F Pulse Rate 89 92 H Respiratory 20 20 Rate Blood Pressure 156/97 150/90 O2 Sat by Pulse 96 100 Oximetry Constitutional: no acute distress, alert, other (disheveled appearance) Eyes: non-icteric ENT: oropharynx moist Neck: supple Effort: normal Cardiovascular: regular rate and rhythm (no mrg) Gastrointestinal: normoactive bowel sounds, soft, non-tender, non-distended Integumentary: normal Extremities: no cyanosis, no edema, pink and warm Neurologic: normal mental status, non-focal exam, pupils equal and round, CN II- XII normal Psychiatric: mood appropriate, affect normal CBC and BMP: 12/22/19 05:31 12/22/19 05:31 ABG, PT/INR, D-dimer: PT/INR, D-dimer PT 13.5 Sec. (12.2-14.9) 12/18/19 15:20 INR 1.02 (0.87-1.13) 12/18/19 15:20 D-Dimer 982.33 ng/mlDDU (0-234) H 12/18/19 15:20 Abnormal lab findings: Abnormal Labs 12/18/19 12/18/19 12/18/19 15:20 15:20 15:20 Hgb Hct MCHC 31 L RDW 19.6 H [place] % (Auto) 8.7 H Eos % (Auto) Lymph # [place] # Seg Neutrophils % 71.3 H D-Dimer 982.33 H Potassium Chloride Carbon Dioxide BUN 7 L Creatinine Glucose POC Glucose Magnesium 1.50 L Direct Bilirubin 0.4 H Alkaline Phosphatase 134 H Lactate Dehydrogenase Total Creatine Kinase 183 H CK-MB (CK-2) 8.6 H CK-MB (CK-2) Rel Index 4.6 H C-Reactive Protein NT-Pro-B Natriuret Pep 00558 H Albumin 3.6 L 12/18/19 12/19/19 12/19/19 15:20 05:15 05:15 Hgb Hct MCHC RDW 19.0 H [place] % (Auto) 11.0 H Eos % (Auto) Lymph # 1.0 L [place] # Seg Neutrophils % D-Dimer Potassium 3.3 L D Chloride Carbon Dioxide BUN 6 L Creatinine 0.7 L Glucose 66 L POC Glucose Magnesium Direct Bilirubin Alkaline Phosphatase Lactate Dehydrogenase 410 H Total Creatine Kinase CK-MB (CK-2) CK-MB (CK-2) Rel Index C-Reactive Protein 1.50 H NT-Pro-B Natriuret Pep Albumin 12/19/19 12/19/19 12/19/19 05:39 08:06 12:00 Hgb Hct MCHC RDW [place] % (Auto) Eos % (Auto) Lymph # [place] # Seg Neutrophils % D-Dimer Potassium Chloride Carbon Dioxide BUN Creatinine Glucose POC Glucose 61 L 153 H Magnesium 1.50 L Direct Bilirubin Alkaline Phosphatase Lactate Dehydrogenase Total Creatine Kinase CK-MB (CK-2) CK-MB (CK-2) Rel Index C-Reactive Protein NT-Pro-B Natriuret Pep Albumin 12/19/19 12/20/19 12/20/19 21:52 04:39 04:39 Hgb 11.5 L Hct MCHC RDW 18.5 H [place] % (Auto) 9.9 H Eos % (Auto) Lymph # 1.1 L [place] # Seg Neutrophils % D-Dimer Potassium 3.5 L Chloride 95.5 L Carbon Dioxide 35 H BUN Creatinine Glucose 140 H POC Glucose 190 H Magnesium Direct Bilirubin Alkaline Phosphatase Lactate Dehydrogenase Total Creatine Kinase CK-MB (CK-2) CK-MB (CK-2) Rel Index C-Reactive Protein NT-Pro-B Natriuret Pep Albumin 12/20/19 12/20/19 12/20/19 07:55 08:05 11:36 Hgb Hct MCHC RDW [place] % (Auto) Eos % (Auto) Lymph # [place] # Seg Neutrophils % D-Dimer Potassium Chloride Carbon Dioxide BUN Creatinine Glucose POC Glucose 122 H 140 H Magnesium 1.50 L Direct Bilirubin Alkaline Phosphatase Lactate Dehydrogenase Total Creatine Kinase CK-MB (CK-2) CK-MB (CK-2) Rel Index C-Reactive Protein NT-Pro-B Natriuret Pep Albumin 12/20/19 12/20/19 12/21/19 16:51 22:20 08:05 Hgb Hct MCHC RDW [place] % (Auto) Eos % (Auto) Lymph # [place] # Seg Neutrophils % D-Dimer Potassium Chloride Carbon Dioxide BUN Creatinine Glucose POC Glucose 135 H 188 H 162 H Magnesium Direct Bilirubin Alkaline Phosphatase Lactate Dehydrogenase Total Creatine Kinase CK-MB (CK-2) CK-MB (CK-2) Rel Index C-Reactive Protein NT-Pro-B Natriuret Pep Albumin 12/21/19 12/22/19 12/22/19 22:49 05:31 05:31 Hgb 10.8 L Hct 34.0 L MCHC RDW 18.3 H [place] % (Auto) 14.4 H Eos % (Auto) 5.3 H Lymph # [place] # 0.9 H Seg Neutrophils % D-Dimer Potassium Chloride Carbon Dioxide 33 H BUN Creatinine Glucose 121 H POC Glucose 169 H Magnesium Direct Bilirubin Alkaline Phosphatase Lactate Dehydrogenase Total Creatine Kinase CK-MB (CK-2) CK-MB (CK-2) Rel Index C-Reactive Protein NT-Pro-B Natriuret Pep Albumin 12/22/19 12/22/19 05:31 08:08 Hgb Hct MCHC RDW [place] % (Auto) Eos % (Auto) Lymph # [place] # Seg Neutrophils % D-Dimer Potassium Chloride Carbon Dioxide BUN Creatinine Glucose POC Glucose 166 H Magnesium 1.40 L Direct Bilirubin Alkaline Phosphatase Lactate Dehydrogenase Total Creatine Kinase CK-MB (CK-2) CK-MB (CK-2) Rel Index C-Reactive Protein NT-Pro-B Natriuret Pep Albumin
[2019-12-22] MEDS: NICOTINE 14 MG/24 HR PATCH TD SCH (09:42)
[2019-12-22] MEDS: FUROSEMIDE 40 MG/4 ML INJ IV SCH (09:42)
[2019-12-22] MEDS: DOXYCYCLINE 100 MG CAP PO SCH ×2 (09:43→23:02)
[2019-12-22] MEDS: ASPIRIN EC 81 MG TAB PO SCH (09:43)
[2019-12-22] MEDS: MAGNESIUM OXIDE 400 MG TAB PO SCH (09:43)
--- NOTE | 2019-12-22 10:17 | Progress Note ---
Assessment and Plan Pt is a 64 y.o. male with a past medical hx of ICMP s/p AICD (EF 20-25% in 2011), prior [place], prior CVA, chronic HFrEF, HTN, DM2, and polysubstance abuse (including tobacco, etoh, cocaine). He has been seen by our practice during previous hospitalizations. Pt reports he has been homeless for approximately 3 months and is typically followed at [place]. He presented to [facility] c/o slurred speech and L hand weakness that began last night. Pt also endorses acute SOB and productive cough. He denies chest pain, palpitations, diaphoresis, dizziness, lightheadedness, syncope, claudication, N/V, and fever/chills. Pt admits non- compliance with cardiac regimen and follow-up appts. BNP 95287. CXR reveals HEMA opacity. Chest CTA negative for PE, reveals LLL pulm nodule. 12/20/2019>Patient denies any chest pain,no significant SOB,echo showed EF 25- 30%,continue diuretic,will decrease Furosemide to once a day.Monitor on telemetry.Having asymptomatic non sustained VT.Labs were reviewed. 12/21/2019>cardiac status remains unchanged,being treated for lingular bacterial pneumonia.continue present rx. 12/22/2019> Currently stable cardiac status. No current clinical evidence of acutely decompensated HF. Cont present GDMT and PO lasix. Replete Mg and f/u BMP and Mg in AM. Nothing further to add from cardiac perspective at this time. Will follow on as needed basis. Recommend pt follow up with [place] [facility] within 1-2 weeks of discharge ([phone]). The patient has been seen in conjunction with Dr. Bhatti who agrees with the as sessment and plan of care. - Patient Problems (1) Chronic HFrEF (heart failure with reduced ejection fraction) Current Visit: Yes Status: Chronic (2) Cardiomyopathy Current Visit: Yes Status: Acute Qualifiers: Cardiomyopathy type: unspecified Qualified Code(s): I42.9 - Cardiomyopathy, unspecified (3) Person under investigation for COVID-19 Current Visit: Yes Status: Acute (4) Pneumonia Current Visit: Yes Status: Acute Qualifiers: Laterality: left Lung location: upper lobe of lung (5) Automatic implantable cardioverter-defibrillator in situ Current Visit: Yes Status: Chronic (6) Cocaine abuse Current Visit: Yes Status: Chronic (7) Diabetes Current Visit: Yes Status: Chronic Qualifiers: Diabetes mellitus type: type 2 (8) ETOH abuse Current Visit: Yes Status: Chronic (9) Hypertension Current Visit: Yes Status: Chronic Qualifiers: Hypertension type: essential hypertension Qualified Code(s): I10 - Essential (primary) hypertension Subjective Date of service: 12/22/19 Principal diagnosis: Pneumonia Interval history: pt resting in bed, states he feels better today, SOB improving. tele reviewed - in SR with 3-10 beat runs NSVT overnight, pt asymptomatic. Objective Last Vital Signs Temp 98.0 F 12/22/19 05:26 Pulse 92 H 12/22/19 05:26 Resp 20 12/22/19 05:26 BP 150/90 12/22/19 05:26 Pulse Ox 100 12/22/19 05:26 - Physical Examination General: No Apparent Distress HEENT: Positive: EOMI, Normocephaly, Mucus Membranes Moist Neck: Positive: neck supple, trachea midline. Negative: JVD/HJR Cardiac: Positive: Reg Rate and Rhythm, S1/S2 Lungs: Positive: Decreased Breath Sounds Neuro: Positive: Grossly Intact Abdomen: Positive: Soft, Active Bowel Sounds. Negative: Tender Skin: Negative: Rash, Wound Musculoskeletal: No Pain, Normal Range of Motion Extremities: Present: upper extr. pulses, lower extr. pulses, +2 Edema (BLE) - Labs and Meds CBC 12/22/19 Range/Units 05:31 WBC 6.2 (4.5-11.0) K/mm3 RBC 3.70 (3.65-5.03) M/mm3 Hgb 10.8 L (11.8-15.2) gm/dl Hct 34.0 L (35.5-45.6) % Plt Count 158 (140-440) K/mm3 Lymph # 1.4 (1.2-5.4) K/mm3 [place] # 0.9 H (0.0-0.8) K/mm3 Eos # 0.3 (0.0-0.4) K/mm3 Baso # 0.1 (0.0-0.1) K/mm3 Comprehensive Metabolic Panel 12/22/19 Range/Units 05:31 Sodium 142 (137-145) mmol/L Potassium 3.7 (3.6-5.0) mmol/L Chloride 98.8 (98-107) mmol/L Carbon Dioxide 33 H (22-30) mmol/L BUN 14 (9-20) mg/dL Creatinine 0.8 (0.8-1.5) mg/dL Glucose 121 H (75-100) mg/dL Calcium 8.6 (8.4-10.2) mg/dL - Imaging and Cardiology EKG: report reviewed, image reviewed Echo: pending, other (12/19/2019>LVEF 25-30%,RVSP 43 mm hg.) - EKG Sinus rhythms and dysrhythmias: sinus rhythm Chamber hypertrophy or enlargement: left atrial enlargement
--- NOTE | 2019-12-22 10:26 | Progress Note ---
Assessment and Plan Assessment and plan: CVA. Continue CVA protocol. Neurology consulted. Acute hypoxemic respiratory failure. Etiology secondary to community-acquired pneumonia and systolic heart failure. CTA of chest negative. Pneumonia. Continue IV antibiotics and follow-up serial chest x-ray. CT of the chest reveals a lingular infiltrate. ID consulted COVID-19 test negative12/19/2019 Acute systolic heart failure. Beta natruretic peptide greater than 10,000. Consulted cardiology. Start Lasix 40 mg IV daily. Ischemic cardiomyopathy. History of AICD. Tobacco abuse EtOH abuse. Cocaine abuse. Patient with UDS positive for cocaine. 12/20/2019. Echocardiogram revealed EF of 25 to 30%. Continue aspirin and Lipitor and afterload reduction with Zestril. Continue ceftriaxone. Patient also with asymptomatic nonsustained V. tach--continue metoprolol 50 mg twice daily. Cardiology and pulmonary following. Inflammatory markers within normal limits. PT/OT evaluation. Await PT recommendations for disposition. 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 12/21/2019. Continue IV antibiotics for pneumonia. Pulmonary recommends follow- up CT chest in 3 months to ensure resolution of pneumonia and stability or improvement of the nodule. Continue beta-casandra for nonsustained V. tach. Continue aspirin, Lipitor and Zestril. Await physical therapy evaluation for disposition. 12/22/2019. Continue GDMT per cardiology recommendations. Replete magnesium and follow-up BMP in a.m. Continue beta-casandra for nonsustained V. tach. Continue aspirin, Lipitor and Zestril. Await physical therapy evaluation for disposition. History Interval history: No new issues overnight. Hospitalist Physical - Constitutional Vitals: Temp Pulse Resp BP Pulse Ox 98.0 F 92 H 20 150/90 100 12/22/19 05:26 12/22/19 05:26 12/22/19 05:26 12/22/19 05:26 12/22/19 05:26 General appearance: Present: no acute distress - EENT Eyes: Present: PERRL, EOM intact ENT: hearing intact, clear oral mucosa, dentition normal - Neck Neck: Present: supple, normal ROM - Respiratory Respiratory effort: normal Respiratory: bilateral: CTA - Cardiovascular Rhythm: regular Heart Sounds: Present: S1 & S2. Absent: gallop, rub - Extremities Extremities: no ischemia, No edema, Full ROM - Abdominal General gastrointestinal: soft, non-tender, non-distended, normal bowel sounds - Integumentary Integumentary: Present: clear, warm, dry - Neurologic Neurologic: CNII-XII intact, moves all extremities HEART Score - HEART Score Troponin: Troponin T 0.014 ng/mL (0.00-0.029) 12/18/19 15:20 Results - Labs CBC & Chem 7: 12/22/19 05:31 12/22/19 05:31 Labs: Laboratory Last Values WBC 6.2 K/mm3 (4.5-11.0) 12/22/19 05:31 RBC 3.70 M/mm3 (3.65-5.03) 12/22/19 05:31 Hgb 10.8 gm/dl (11.8-15.2) L 12/22/19 05:31 Hct 34.0 % (35.5-45.6) L 12/22/19 05:31 MCV 92 fl (84-94) 12/22/19 05:31 MCH 29 pg (28-32) 12/22/19 05:31 MCHC 32 % (32-34) 12/22/19 05:31 RDW 18.3 % (13.2-15.2) H 12/22/19 05:31 Plt Count 158 K/mm3 (140-440) 12/22/19 05:31 Lymph % (Auto) 22.1 % (13.4-35.0) 12/22/19 05:31 Perkins % (Auto) 14.4 % (0.0-7.3) H 12/22/19 05:31 Eos % (Auto) 5.3 % (0.0-4.3) H 12/22/19 05:31 Baso % (Auto) 0.9 % (0.0-1.8) 12/22/19 05:31 Lymph # 1.4 K/mm3 (1.2-5.4) 12/22/19 05:31 Perkins # 0.9 K/mm3 (0.0-0.8) H 12/22/19 05:31 Eos # 0.3 K/mm3 (0.0-0.4) 12/22/19 05:31 Baso # 0.1 K/mm3 (0.0-0.1) 12/22/19 05:31 Seg Neutrophils % 57.3 % (40.0-70.0) 12/22/19 05:31 Seg Neutrophils # 3.5 K/mm3 (1.8-7.7) 12/22/19 05:31 PT 13.5 Sec. (12.2-14.9) 12/18/19 15:20 INR 1.02 (0.87-1.13) 12/18/19 15:20 APTT 25.9 Sec. (24.2-36.6) 12/18/19 15:20 D-Dimer 982.33 ng/mlDDU (0-234) H 12/18/19 15:20 Sodium 142 mmol/L (137-145) 12/22/19 05:31 Potassium 3.7 mmol/L (3.6-5.0) 12/22/19 05:31 Chloride 98.8 mmol/L (98-107) 12/22/19 05:31 Carbon Dioxide 33 mmol/L (22-30) H 12/22/19 05:31 Anion Gap 14 mmol/L 12/22/19 05:31 BUN 14 mg/dL (9-20) 12/22/19 05:31 Creatinine 0.8 mg/dL (0.8-1.5) 12/22/19 05:31 Estimated GFR > 60 ml/min 12/22/19 05:31 BUN/Creatinine Ratio 18 % 12/22/19 05:31 Glucose 121 mg/dL (75-100) H 12/22/19 05:31 POC Glucose 166 (70-105) H 12/22/19 08:08 Lactic Acid 1.60 mmol/L (0.7-2.0) 12/18/19 17:05 Calcium 8.6 mg/dL (8.4-10.2) 12/22/19 05:31 Magnesium 1.40 mg/dL (1.7-2.3) L 12/22/19 05:31 Ferritin 19.7 ng/mL (13.0-400.0) 12/18/19 15:20 Total Bilirubin 0.80 mg/dL (0.1-1.2) 12/18/19 15:20 Direct Bilirubin 0.4 mg/dL (0-0.2) H 12/18/19 15:20 Indirect Bilirubin 0.4 mg/dL 12/18/19 15:20 AST 39 units/L (5-40) 12/18/19 15:20 ALT 23 units/L (7-56) 12/18/19 15:20 Alkaline Phosphatase 134 units/L (35-129) H 12/18/19 15:20 Lactate Dehydrogenase 410 units/L (91-180) H 12/18/19 15:20 Total Creatine Kinase 183 units/L (55-170) H 12/18/19 15:20 CK-MB (CK-2) 8.6 ng/mL (0.0-4.0) H 12/18/19 15:20 CK-MB (CK-2) Rel Index 4.6 (0-4) H 12/18/19 15:20 Troponin T 0.014 ng/mL (0.00-0.029) 12/18/19 15:20 C-Reactive Protein 1.50 mg/dL (0.00-1.30) H 12/18/19 15:20 NT-Pro-B Natriuret Pep 00027 pg/mL (0-900) H 12/18/19 15:20 Total Protein 7.8 g/dL (6.3-8.2) 12/18/19 15:20 Albumin 3.6 g/dL (3.9-5) L 12/18/19 15:20 Albumin/Globulin Ratio 0.9 % 12/18/19 15:20 Procalcitonin < 0.05 ng/mL (<0.15) 12/18/19 15:20 Urine Color Colorless (Yellow) 12/18/19 14:55 Urine Turbidity Clear (Clear) 12/18/19 14:55 Urine pH 6.0 (5.0-7.0) 12/18/19 14:55 Ur Specific [place] 1.004 (1.003-1.030) 12/18/19 14:55 Urine Protein <15 mg/dl mg/dL (Negative) 12/18/19 14:55 Urine Glucose (UA) Neg mg/dL (Negative) 12/18/19 14:55 Urine Ketones Neg mg/dL (Negative) 12/18/19 14:55 Urine Blood Sm (Negative) 12/18/19 14:55 Urine Nitrite Neg (Negative) 12/18/19 14:55 Urine Bilirubin Neg (Negative) 12/18/19 14:55 Urine Urobilinogen < 2.0 mg/dL (<2.0) 12/18/19 14:55 Ur Leukocyte Esterase Neg (Negative) 12/18/19 14:55 Urine WBC (Auto) < 1.0 /HPF (0.0-6.0) 12/18/19 14:55 Urine RBC (Auto) 2.0 /HPF (0.0-6.0) 12/18/19 14:55 Nasal Screen MRSA (PCR) Negative (Negative) 12/19/19 17:00 Urine Opiates Screen Presumptive negative 12/18/19 14:55 Urine Methadone Screen Presumptive negative 12/18/19 14:55 Ur Barbiturates Screen Presumptive negative 12/18/19 14:55 Ur Phencyclidine Scrn Presumptive negative 12/18/19 14:55 Ur Amphetamines Screen Presumptive negative 12/18/19 14:55 U Benzodiazepines Scrn Presumptive negative 12/18/19 14:55 Urine Cocaine Screen Presumptive positive 12/18/19 14:55 U Marijuana (THC) Screen Presumptive negative 12/18/19 14:55 Drugs of Abuse Note Disclamer 12/18/19 14:55 Plasma/Serum Alcohol < 0.01 % (0-0.07) 12/18/19 15:20 Coronavirus (PCR) Negative (Negative) 12/19/19 07:25 Microbiology: Microbiology 12/18/19 17:05 Peripheral/Venous Blood Culture - Preliminary NO GROWTH AFTER 72 HOURS 12/18/19 17:05 Peripheral/Venous Blood Culture - Preliminary NO GROWTH AFTER 72 HOURS - Diagnostic Impressions Diagnostic Impressions: Echocardiogram 12/18/19 18:04 Transthoracic Echocardiogram Indication: Stroke BP: 115/78 HR: 87 Conclusions *Global left ventricular systolic function is moderate to severely decreased. *The estimated ejection fraction is 25-30%. *Mild to moderate concentric left ventricular hypertrophy is observed. *Abnormal left ventricular diastolic filling is observed, consistent with impaired relaxation. *A pacemaker wire is visualized in the right ventricle. *No atrial septal defected is demonstrated by agitated saline contrast. *There is no evidence of aortic regurgitation. *There is mild mitral regurgitation. *There is mild tricuspid regurgitation. *The right ventricular systolic pressure is calculated at 43 mmHg. *There is trace pulmonic regurgitation. *There is no change in the dimension of the inferior vena cava with respiration consistent with markedly increased right atrial pressure. Findings Left Ventricle: The left ventricular chamber size is normal. Mild to moderate concentric left ventricular hypertrophy is observed. Global left ventricular systolic function is moderate to severely decreased. The estimated ejection fraction is 25-30%. Abnormal left ventricular diastolic filling is observed, consistent with impaired relaxation. Right Ventricle: The right ventricular cavity size is normal. A pacemaker wire is visualized in the right ventricle. Right Atrium: The right atrial cavity size is normal. A pacemaker wire is visualized in the right atrium. No atrial septal defected is demonstrated by agitated saline contrast. Aortic Valve: The aortic valve leaflets are mildly thickened. There is no evidence of aortic regurgitation. Mitral Valve: The mitral valve leaflets are mildly thickened. There is mild mitral regurgitation. Tricuspid Valve: The tricuspid valve leaflets are normal. There is mild tricuspid regurgitation. The right ventricular systolic pressure is calculated at 43 mmHg. Pulmonic Valve: The pulmonic valve appears normal. There is trace pulmonic regurgitation. Pericardium: There is no pericardial effusion. Venous: The inferior vena cava appears normal in size. There is no change in the dimension of the inferior vena cava with respiration consistent with markedly increased right atrial pressure. Contrast: Intravenous agitated saline contrast was used to assess intracardiac shunting. Measurements Chambers 2D Name Value Normal Range IVSd (2D) 1.47 cm (0.6 - 1.1) LVPWd (2D) 1.34 cm (0.6 - 1.1) LVIDd (2D) 5.28 cm (3.7 - 5.6) LVIDs (2D) 4.53 cm (2 - 3.8) LV FS (2D) 14.2 % - EF Teichholz (2D) 30 % - Ao root diameter (2D) 3.15 cm (2 - 3.7) Volumes/Mass Name Value Normal Range LA ESV SP 4CH (A/L) 43.44 ml - LA ESV SP 2CH (A/L) 75.52 ml - LA ESV BP (A/L) 58.3 ml - LA ESV BP (A/L) index 29.9 ml/m2 - LA ESV SP 4CH (MOD) 38.82 ml - LA ESV SP 2CH (MOD) 70.93 ml - LA ESV BP (MOD) 53.15 ml - LA ESV BP (MOD) index 27.26 ml/m2 - Diastolic/Systolic Function Name Value Normal Range MV E-wave Vmax 0.46 m/sec - MV deceleration time 187.33 msec - MV A-wave Vmax 0.61 m/sec - MV E:A ratio 0.76 ratio - Aortic Valve Name Value Normal Range AV Vmax 0.77 m/sec - AV VTI 13.35 cm - AV peak gradient 2.39 mmHg - AV mean gradient 1.47 mmHg - LVOT diameter 2.31 cm - LVOT Vmax 0.66 m/sec - LVOT VTI 11.79 cm - LVOT peak gradient 1.75 mmHg - LVOT mean gradient 0.95 mmHg - SV LVOT 49.32 ml - CRIS (continuity Vmax) 3.57 cm2 - CRIS (continuity VTI) 3.69 cm2 - Mitral Valve Name Value Normal Range MR Vmax 3.43 m/sec - Tricuspid Valve Name Value Normal Range TR Vmax 2.95 m/sec - TR peak gradient 35 mmHg - RAP 8 mmHg - RVSP 43 mmHg - IVC diameter 1.85 cm (1.2 - 2.3) Pulmonic Valve/Qp:Qs Name Value Normal Range PV Vmax 0.54 m/sec - PV peak gradient 1.17 mmHg - VT end-diastolic Vmax 1.67 m/sec - PV acceleration time 95.15 msec - Capellan/IV: Voiding Method Urinal IV Catheter Type [Right Hand] INT / Saline Lock IV Catheter Type [Right INT / Saline Lock Antecubital] Active Medications - Current Medications Current Medications: Generic Name Dose Route Start Last Admin Trade Name Freq PRN Reason Stop Dose Admin Acetaminophen 650 mg 12/18/19 18:03 12/22/19 04:01 Tylenol PO 650 mg Q4H PRN Administration Pain, Mild (1-3) Aspirin 81 mg 12/19/19 10:00 12/22/19 09:43 Halfprin Ec PO 81 mg QDAY ESTRELLA Administration Atorvastatin Calcium 40 mg 12/18/19 22:00 12/21/19 21:31 Lipitor PO 40 mg QHS ESTRELLA Administration Bisacodyl 10 mg 12/18/19 18:03 Dulcolax VT QDAY PRN Constipation Cefuroxime Axetil 500 mg 12/21/19 12:30 12/22/19 09:42 Ceftin PO 12/26/19 12:29 500 mg Q12HR ESTRELLA Administration Doxycycline Hyclate 100 mg 12/21/19 12:30 12/22/19 09:43 Vibramycin PO 12/26/19 12:29 100 mg BID ESTRELLA Administration Furosemide 40 mg 12/23/19 10:00 Lasix PO QDAY ESTRELLA Magnesium Sulfate 2 gm in 50 mls @ 25 mls/hr 12/22/19 11:00 Magnesium Sulfate 2gm/50ml IV 12/22/19 12:59 ONCE ONE Lisinopril 10 mg 12/19/19 16:00 12/21/19 10:44 Zestril PO 10 mg QDAY [facility] Administration Magnesium Hydroxide 30 ml 12/18/19 18:03 Milk Of Magnesia PO Q4H PRN Constipation Magnesium Oxide 400 mg 12/18/19 18:00 12/22/19 09:43 Mag-Ox PO 400 mg QDAY [facility] Administration Metoclopramide HCl 10 mg 12/18/19 18:03 Reglan PO Q6H PRN Nausea And Vomiting Metoprolol Tartrate 50 mg 12/19/19 16:00 12/21/19 21:31 Metoprolol PO 50 mg BID ESTRELLA Administration Nicotine 14 mg 12/20/19 18:00 12/22/19 09:42 Habitrol TD 14 mg QDAY [facility] Administration Ondansetron HCl 4 mg 12/18/19 18:03 Zofran IV Q8H PRN Nausea And Vomiting Promethazine HCl 25 mg 12/18/19 18:03 Phenergan VT Q6H PRN Nausea And Vomiting Sodium Chloride 10 ml 12/18/19 18:03 12/21/19 21:31 Sodium Chloride Flush Syringe 10 Ml IV 10 ml PRN PRN Administration LINE FLUSH
[2019-12-22] MEDS ORDERED: MAGNESIUM SULFATE 2 GM/50 ML BAG IV ONE (11:00)
--- NOTE | 2019-12-22 12:55 | Progress Note ---
Assessment and Plan Cultures: Blood cultures 12/18/2019 no growth today 12/19/2019 coronavirus PCR: Negative Assessment: 64 years old male with history of hypertension, CVA, CAD/OR, CHF status post AICD placement, diabetes, polysubstance abuse, homelessness, admitted on 12/18/2019 due to low 24-hour history of acute left hand weakness and slurred speech associated with shortness of breath, productive cough with yellow sputum and sweats: #Possible lingular pneumonia: Likely bacterial, COVID-19 test negative. Infl ammatory markers including ferritin, S CRP within normal limits. D-dimer mildly elevated. No fever. no leucocytosis. #Polysubstance abuse: Cocaine positive #Homelessness #Possible CVA, per primary team Recommendations: doing well, already on PO Ceftin 500 mg BID + doxycycline 100 mg BID x 4 more days Jatinder Blanc MD, FACP [facility] C: [phone] O: [phone] F: [phone] Subjective Date of service: 12/22/19 Principal diagnosis: Pneumonia Interval history: Patient with no fever, breathing continues to improve, not on oxygen. No rash. On PO abx. Objective - Exam Narrative Exam: Physical Exam: Constitutional: Alert, cooperative. No acute distress Head, Ears, Nose: Normocephalic, atraumatic. External ears, nose normal Eyes: Conjunctivae/corneas clear. No icterus. No ptosis. Neck: Supple, no meningeal signs Cardiovascular: S1, S2 normal. Respiratory: clear to ausc GI: Soft, non-tender; bowel sounds normal. No peritoneal signs Musculoskeletal: No pedal edema, no cyanosis. Skin: No rash or abscess Hem/Lymphatic: No palpable cervical or supraclavicular nodes. No lymphangitis Psych: Mood ok. Affect normal Neurological: Awake, alert, oriented. No gross abnormality - Constitutional Vitals: Vital Signs Temp Pulse Resp BP Pulse Ox 99.0 F 91 H 20 124/78 95 12/22/19 12:20 12/22/19 12:20 12/22/19 12:20 12/22/19 12:20 12/22/19 12:20 Temperature -Last 24 Hours Temperature 99.0 F Temperature 98.0 F Temperature 98.9 F Temperature 99.0 F - Labs CBC & Chem 7: 12/22/19 05:31 12/22/19 05:31 Labs: Abnormal lab results 12/21/19 12/22/19 12/22/19 Range/Units 22:49 05:31 05:31 Hgb 10.8 L (11.8-15.2) gm/dl Hct 34.0 L (35.5-45.6) % RDW 18.3 H (13.2-15.2) % [place] % (Auto) 14.4 H (0.0-7.3) % Eos % (Auto) 5.3 H (0.0-4.3) % Lincoln # 0.9 H (0.0-0.8) K/mm3 Carbon Dioxide 33 H (22-30) mmol/L Glucose 121 H (75-100) mg/dL POC Glucose 169 H (70-105) Magnesium (1.7-2.3) mg/dL 12/22/19 12/22/19 Range/Units 05:31 08:08 Hgb (11.8-15.2) gm/dl Hct (35.5-45.6) % RDW (13.2-15.2) % Lincoln % (Auto) (0.0-7.3) % Eos % (Auto) (0.0-4.3) % Lincoln # (0.0-0.8) K/mm3 Carbon Dioxide (22-30) mmol/L Glucose (75-100) mg/dL POC Glucose 166 H (70-105) Magnesium 1.40 L (1.7-2.3) mg/dL
[2019-12-22] MEDS: METOPROLOL TARTRATE 50 MG TAB PO SCH ×2 (13:04→23:02)
[2019-12-22] MEDS: LISINOPRIL 10 MG TAB PO SCH (13:04)
[2019-12-22] MEDS: INSULIN LISPRO 100 UNIT/ML SUB-Q SCH ×2 (17:38→22:00)
[2019-12-23 05:52] LABS: BUN/Creatinine Ratio 23; Blood Urea Nitrogen 16 mg/dL (9-20); Calcium 8.7 mg/dL (8.4-10.2); Hemolysis Index 7
[2019-12-23] MEDS: INSULIN LISPRO 100 UNIT/ML SUB-Q SCH ×2 (08:28→12:25)
[2019-12-23] MEDS: NICOTINE 14 MG/24 HR PATCH TD SCH (09:49)
[2019-12-23] MEDS: METOPROLOL TARTRATE 50 MG TAB PO SCH (09:50)
[2019-12-23] MEDS: MAGNESIUM OXIDE 400 MG TAB PO SCH (09:50)
[2019-12-23] MEDS: ASPIRIN EC 81 MG TAB PO SCH (09:50)
[2019-12-23] MEDS: POTASSIUM CHLORIDE ER 20 MEQ TAB PO SCH ×2 (09:50→12:25)
[2019-12-23] MEDS: LISINOPRIL 10 MG TAB PO SCH (09:51)
[2019-12-23] MEDS: DOXYCYCLINE 100 MG CAP PO SCH (09:56)
[2019-12-23] MEDS ORDERED: FUROSEMIDE 40 MG TAB PO SCH (10:00)
--- NOTE | 2019-12-23 13:05 | Discharge Summary ---
Providers - Providers Date of Admission: 12/18/19 18:03 Date of discharge: 12/23/19 Attending physician: ADOLFO AVALOS 12/18/19 18:03 Consult to Case Management [CONS] Routine Services Needed at Discharge: Seasonal Customer Service Associate Notified:: in am Phone number called:: LONG TERM Placement Occupational Therapy Evaluate and Treat [CONS] Routine Comment: Reason For Exam: Neuro deficits Physical Therapy Evaluation and Treat [CONS] Routine Comment: Reason For Exam: Neuro deficits 12/18/19 18:04 Speech Therapy Evaluation and Treat [CONS] Routine Reason For Exam: swallow eval 12/18/19 18:36 Consult to Physician [CONS] Routine Comment: Consulting Provider: WENDY SUMMERS Physician Instructions: Reason For Exam: covid 19 pui Consult to Physician [CONS] Routine Comment: Consulting Provider: SHERMAN ROJAS Physician Instructions: Reason For Exam: covid 19 pui 12/18/19 21:18 Consult to Physician [CONS] Routine Comment: Consulting Provider: LUZ MATSON Physician Instructions: Reason For Exam: cva [facility] Hospital[facility] Condition: Fair Hospital course: 64 YO Male with HTN, CVA, NV, CHF S/P AICD Placement, DM, Nicotine Dependence, Polysubstance Abuse, Homelessness presented to ED for evaluation. Patient stated that he awoke from sleep and experienced weakness in his left hand as well as slurred speech. Patient also reports shortness of breath, productive cough with yellow sputum, and suspected contact with coronavirus. Patient seen and evaluated in the emergency department. Tele-neurology consulted. Chest x-ray revealed left upper lobe infiltrate consistent with pneumonia. Patient initiated on pneumonia protocol. Patient found to have risk factors for COVID- 19 and initiated on COVID-19 protocol in the emergency department. Pulmonary team consulted in ED. Infectious disease team consulted in ED. Neurology team consulted in ED. He was admitted, treated for pneumonia. Stroke was ruled out by Neurologist. For acute on chroni systolic CHF, he was seen by pneumatic tool operator. He improved in few days and eventually discharged home on 12/23/19. Acute hypoxemic respiratory failure. Etiology secondary to community-acquired pneumonia and systolic heart failure. Treated with supplemental Oxygen Pneumonia. Treated with IV antibiotics .CT of the chest reveals a lingular infiltrate. ID consulted,was following COVID-19 test negative12/19/2019 Acute on chronic systolic heart failure. Beta natruretic peptide greater than 10,000. Cardiology was following, Lasix IV daily. Ischemic cardiomyopathy. History of AICD. Tobacco abuse EtOH abuse. Cocaine abuse. Patient with UDS positive for cocaine. 12/20/2019. Echocardiogram revealed EF of 25 to 30%. Continue aspirin and Lipitor and afterload reduction with Zestril. Continue ceftriaxone. Patient also with asymptomatic nonsustained V. tach--continue metoprolol 50 mg twice daily. Cardiology and pulmonary following. Inflammatory markers within normal limits. PT/OT evaluation. Await PT recommendations for disposition. 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 12/21/2019. Continue IV antibiotics for pneumonia. Pulmonary recommends follow- up CT chest in 3 months to ensure resolution of pneumonia and stability or improvement of the nodule. Continue beta-casandra for nonsustained V. tach. Continue aspirin, Lipitor and Zestril. Await physical therapy evaluation for disposition. 12/22/2019. Continue GDMT per cardiology recommendations. Replete magnesium and follow-up BMP in a.m. Continue beta-casandra for nonsustained V. tach. Continue aspirin, Lipitor and Zestril. Await physical therapy evaluation for disposition. Total time spent on discharge is 36 mins Disposition: - TO HOME OR SELFCARE Core Measure Documentation - Palliative Care Palliative Care/ Comfort Measures: Not Applicable - Core Measures Any of the following diagnoses?: heart failure - Heart Failure Discharge Requirements SUNSHINE/ARB for LVSD if EF <40%: Yes Beta casandra at discharge: Yes Exam - Constitutional Vitals: Temp Pulse Resp BP Pulse Ox 98.9 F 87 18 123/76 92 12/23/19 11:10 12/23/19 11:10 12/23/19 11:10 12/23/19 11:10 12/23/19 11:10 Plan Activity: advance as tolerated Diet: low fat, low cholesterol, low salt Additional Instructions: 1.Follow up with PCP in 1 week. 2.Follow up with Cardiology at [place] in 1 week. 3.Follow up with Neurology. 4.Outpatient occupational therapy Care Plan Goals: 1.Follow up with PCP in 1 week. 2.Follow up with Cardiology at [place] in 1 week. Follow up with: CHRISTIAN GARCIA MD [Primary Care Provider] - 7 Days Prescriptions: cefUROXime [Ceftin] 500 mg PO Q12HR 3 Days #12 tablet Furosemide [Lasix TAB] 40 mg PO QDAY #30 tablet Metoprolol [Lopressor TAB] 50 mg PO BID #60 tablet Magnesium Oxide [Mag-Ox] 400 mg PO QDAY 14 Days #28 tablet Potassium Chloride 20 meq PO QDAY 7 Days #7 packet DOXYCYCLINE Hyclate [Vibramycin CAP] 100 mg PO BID 3 Days #6 tab lisinopriL [Zestril TAB] 10 mg PO QDAY #30 tablet Other Discharge Orders: Occupational Therapy (Amb) Location: None Selected
--- NOTE | 2019-12-23 13:47 | Progress Note ---
Assessment and Plan Cultures: Blood cultures 12/18/2019 no growth today 12/19/2019 coronavirus PCR: Negative Assessment: 64 years old male with history of hypertension, CVA, CAD/[place], CHF status post AICD placement, diabetes, polysubstance abuse, homelessness, admitted on 12/18/2019 due to low 24-hour history of acute left hand weakness and slurred speech associated with shortness of breath, productive cough with yellow sputum and sweats: #Possible lingular pneumonia: Likely bacterial, COVID-19 test negative. Infl ammatory markers including ferritin, S CRP within normal limits. D-dimer mildly elevated. No fever. no leucocytosis. #Polysubstance abuse: Cocaine positive. #Homelessness #Possible CVA, per primary team Recommendations: continue PO Ceftin 500 mg BID + doxycycline 100 mg BID x 3 more days Jatinder Blanc MD, FACP [facility] C: [phone] O: [phone] F: [phone] Subjective Date of service: 12/23/19 Principal diagnosis: Pneumonia Interval history: Denies any new complaints, breathing continues to improve, on PO abx. Tolerating well. No nausea, vomiting. Objective - Exam Narrative Exam: Physical Exam: Constitutional: Alert, cooperative. No acute distress Head, Ears, Nose: Normocephalic, atraumatic. External ears, nose normal Eyes: Conjunctivae/corneas clear. No icterus. No ptosis. Neck: Supple, no meningeal signs Cardiovascular: S1, S2 normal. Respiratory: clear to auscultation GI: Soft, non-tender; bowel sounds normal. No peritoneal signs Musculoskeletal: No pedal edema, no cyanosis. Skin: No rash or abscess Hem/Lymphatic: No palpable cervical or supraclavicular nodes. No lymphangitis Psych: Mood ok. Affect normal Neurological: Awake, alert, oriented. No gross abnormality - Constitutional Vitals: Vital Signs Temp Pulse Resp BP Pulse Ox 98.9 F 87 18 123/76 92 12/23/19 11:10 12/23/19 11:10 12/23/19 11:10 12/23/19 11:10 12/23/19 11:10 Temperature -Last 24 Hours Temperature 98.9 F Temperature 98.8 F Temperature 98.7 F Temperature 98.3 F - Labs CBC & Chem 7: 12/22/19 05:31 12/23/19 05:00 Labs: Abnormal lab results 12/22/19 12/22/19 12/23/19 Range/Units 16:46 21:31 05:00 Potassium 3.5 L (3.6-5.0) mmol/L Carbon Dioxide 31 H (22-30) mmol/L Creatinine 0.7 L (0.8-1.5) mg/dL Glucose 121 H (75-100) mg/dL POC Glucose 295 H 135 H (70-105) 12/23/19 12/23/19 Range/Units 08:07 11:23 Potassium (3.6-5.0) mmol/L Carbon Dioxide (22-30) mmol/L Creatinine (0.8-1.5) mg/dL Glucose (75-100) mg/dL POC Glucose 121 H 188 H (70-105)
[2019-12-23 15:54] VITALS: BP 120/82
== END 2019-12-23 16:05 | disposition home or self-care (01) | DRG 291 ==
LOC: ED 13:01 → IMCU 18:03
PROVIDERS: ADMIT Internal Medicine; ATTEND Internal Medicine
DX: I11.0 Hypertensive heart disease with heart failure (principal); J96.01 Acute respiratory failure with hypoxia; J15.9 Unspecified bacterial pneumonia; I47.1 Supraventricular tachycardia; G56.31 Lesion of radial nerve, right upper limb; I50.23 Acute on chronic systolic (congestive) heart failure; I25.10 Atherosclerotic heart disease of native coronary artery without angina pectoris; E11.9 Type 2 diabetes mellitus without complications; F19.10 Other psychoactive substance abuse, uncomplicated; I25.5 Ischemic cardiomyopathy; F10.10 Alcohol abuse, uncomplicated; F14.10 Cocaine abuse, uncomplicated; F17.210 Nicotine dependence, cigarettes, uncomplicated; I27.20 Pulmonary hypertension, unspecified; R91.1 Solitary pulmonary nodule; E87.6 Hypokalemia; E83.42 Hypomagnesemia; F12.90 Cannabis use, unspecified, uncomplicated; I25.2 Old myocardial infarction; Z95.810 Presence of automatic (implantable) cardiac defibrillator; Z59.0 Homelessness; Z03.818 Encounter for observation for suspected exposure to other biological agents ruled out; Z79.82 Long term (current) use of aspirin; Z79.899 Other long term (current) drug therapy; Z91.14 Patient's other noncompliance with medication regimen
CPT/HCPCS: 36415; 70450; 71045; 71275; 80048; 80076; 80307; 80320; 81001; 82140; 82550; 82553; 82728; 82947; 82962; 83615; 83735; 83880; 84145; 84484; 85025; 85379; 85610; 85730; 86140; 87040; 87641; 93005; 93306; 93880; 94760; G0378; A9270-GY; G0480; J0456; J0696; J1815; J1940; J2060; J3475; J7050; Q9967; U0003-CS

== ENCOUNTER 2020-03-18 16:11 | Emergency (ER) | payer MEDICARE | END 2020-03-18 16:30 | disposition left against medical advice (07) | LOC: ED 16:11 | DX: R53.1 Weakness (principal); Z53.21 Procedure and treatment not carried out due to patient leaving prior to being seen by health care provider ==